=== PATIENT | female | born 1970 | race Two or more races ===

== ENCOUNTER 2021-11-29 09:43 | Outpatient (REF) | payer OTHER, SELFPAY ==
[2021-11-29 10:01] LABS: Hematocrit 37.7 % (37.0-47.0); Hemoglobin 12.1 g/dl (12.0-16.0); Mean Corpuscular HGB Conc 32.1 g/dl (31.0-35.0); Mean Corpuscular Hemoglobin 29.8 pg (27.0-33.0); Mean Corpuscular Volume 92.9 fL (80.0-98.0); Mean Platelet Volume 9.4 fL (9.4-12.3); Platelet Count 412 X10*3/uL (160-400); Red Blood Count 4.06 X10*6/uL (4.20-5.50); Red Cell Distribution Width 13.2 % (11.0-16.0); White Blood Count 5.9 X10*3/uL (4.8-10.8)
[2021-11-29 10:15] LABS: Estimated Average Glucose 103 mg/dL; Hemoglobin A1c % 5.2 %
[2021-11-29 10:22] LABS: Alanine Aminotransferase 10 U/L (0-31); Alkaline Phosphatase 150 U/L (39-117); Anion Gap 11 (12-20); Aspartate Amino Transferase 15 U/L (5-31); Bilirubin Total < 0.2 mg/dL (0.0-1.0); Blood Urea Nitrogen 7 mg/dL (9-16); Calcium 9.5 mg/dL (8.4-10.2); Carbon Dioxide 28 mmol/L (22-29); Chloride 105 mmol/L (96-108); Cholesterol 236 mg/dL; Estimated Glomerular Filt Rate > 60; Glucose Fasting 97 mg/dL (60-99); HDL Cholesterol 46 mg/dL; LDL Cholesterol Calculated 167 mg/dl; Potassium 3.8 mmol/L (3.3-5.1); Rheumatoid Factor < 15.0 IU/mL (<15.0); Sodium 140 mmol/L (135-145); Triglycerides 118 mg/dL
[2021-11-29 10:41] LABS: TSH reflex Free T4 1.84 uIU/mL (0.32-4.0)
[2021-11-29 14:26] LABS: Erythrocyte Sedimentation Rate 71 MM/HR (0-20)
[2021-11-30 09:06] LABS: Herpes Simplex Type 2 IgG 9.57 index
[2021-12-01 12:41] LABS: Anti Nuclear Antibody Screen NEGATIVE (NEGATIVE)
[2021-12-02 15:36] LABS: Cyclic Citrullinated Peptide <16 UNITS
== END 2021-11-29 09:44 | disposition home or self-care (01) ==
LOC: HO.LAB 09:43
PROVIDERS: PCP Physician Assistant; Visit Provider Physician Assistant
DX: Z13.29 Encounter for screening for other suspected endocrine disorder (principal); Z13.220 Encounter for screening for lipoid disorders; B00.9 Herpesviral infection, unspecified; M79.7 Fibromyalgia; I10 Essential (primary) hypertension
CPT/HCPCS: 36415; 80053; 80061; 83036; 84443; 85027; 85652; 86038; 86039; 86200; 86431; 86695; 86696

== ENCOUNTER 2022-01-09 09:36 | Outpatient (REF) | payer OTHER, SELFPAY ==
[2022-01-14 21:47] LABS: HPV mRNA E6/E7 rflx Not Detected (Not Detected)
== END 2022-01-09 09:37 | disposition home or self-care (01) ==
LOC: HO.LAB 09:36
PROVIDERS: PCP Physician Assistant; Visit Provider Advanced Practice Midwife
DX: Z01.419 Encounter for gynecological examination (general) (routine) without abnormal findings (principal); Z11.51 Encounter for screening for human papillomavirus (HPV)
CPT/HCPCS: 87624; 88142

== ENCOUNTER 2022-01-28 13:45 | Outpatient (REF) | payer OTHER, SELFPAY ==
--- NOTE | ~2022-01-28 | MM_ITS ---
EXAMINATION: MM SCREENING DIGITAL BREAST TOMOSYNTHESIS, BILATERAL CLINICAL INFORMATION: Screening. Asymptomatic. The lifetime risk of breast cancer based on the Tyrer-Cuzick Model is 5%. COMPARISON: Mammography: 08/05/2018, 12/11/2017, 03/19/2017 TECHNIQUE: Digital breast tomosynthesis is performed in both the craniocaudal and mediolateral oblique views along with computer-aided detection (CAD). Synthesized 2D images are generated from the tomosynthesis. Additional right CC view is provided. FINDINGS: There are scattered areas of fibroglandular density (ACR BI-RADS breast composition Category b). There are no significant masses, abnormal calcifications, or other abnormalities. Breast tissue composition borders on heterogeneously dense. Low right axillary tail nodes are stable. Parenchymal pattern is similar to prior studies. There are no significant changes. MM/MM tomosynthesis screening BI IMPRESSION: No mammographic evidence of malignancy. ASSESSMENT: BI-RADS 2: Benign RECOMMENDATION: Routine annual mammography screening. This patient's information was entered into a reminder system with a target due date for their next mammogram.
== END 2022-01-28 13:46 | disposition home or self-care (01) ==
LOC: HO.MAMMO 13:45
PROVIDERS: Visit Provider Physician Assistant
DX: Z12.31 Encounter for screening mammogram for malignant neoplasm of breast (principal)
CPT/HCPCS: 77063; 77067

== ENCOUNTER 2022-02-20 13:59 | Outpatient (REF) | payer OTHER, SELFPAY ==
--- NOTE | ~2022-02-20 | XR_ITS ---
EXAMINATION: XR KNEE, RIGHT CLINICAL INFORMATION: Osteoarthritis. COMPARISON: Right knee radiographs dated 12/09/2015. TECHNIQUE: Four views of the right knee. FINDINGS: Mild lateral compartment joint space narrowing with lateral tibial plateau subchondral sclerosis and subchondral cystic change. Small tricompartmental marginal osteophytes. No acute fracture or dislocation. Moderate joint effusion. No abnormal soft tissue calcification. XR/XR knee RT 3V IMPRESSION: Moderate lateral as well as mild medial and patellofemoral compartment osteoarthritis, progressed when compared to the prior radiographs. Moderate joint effusion.
--- NOTE | ~2022-02-20 | XR_ITS ---
EXAMINATION: XR CERVICAL SPINE CLINICAL INFORMATION: Cervical disc disorder. COMPARISON: Cervical spine CT dated 02/13/2018. TECHNIQUE: AP, lateral, open-mouth, foraminal, and bilateral oblique views of the cervical spine were obtained. FINDINGS: Normal vertebral body alignment. The cervical lordosis is maintained. No acute fracture or subluxation. No loss of vertebral body height. Loss of intervertebral disc height with endplate sclerosis and endplate osteophytes at C5-C6, similar when compared to the prior CT. Minimal bilateral neural foraminal stenosis at this level. No concerning lytic or blastic osseous lesion. Normal vertebral body alignment. Unremarkable prevertebral soft tissues. XR/XR cervical spine 4V IMPRESSION: Moderate degenerative disc disease with minimal bilateral neural foraminal stenosis at C5-C6, which appears similar when compared to the prior CT.
== END 2022-02-20 14:00 | disposition home or self-care (01) ==
LOC: HO.XRAY 13:59
PROVIDERS: PCP Physician Assistant; Visit Provider Physician Assistant
DX: M50.90 Cervical disc disorder, unspecified, unspecified cervical region (principal); M17.11 Unilateral primary osteoarthritis, right knee
CPT/HCPCS: 72050; 73562

== ENCOUNTER → 2022-09-15 14:06 | Outpatient (BNVA) | payer OTHER, SELFPAY | PROVIDERS: PCP Physician Assistant; Visit Provider Nurse Practitioner Family | DX: M50.90 Cervical disc disorder, unspecified, unspecified cervical region (principal); M79.7 Fibromyalgia; M54.12 Radiculopathy, cervical region | CPT/HCPCS: 99202 ==

== ENCOUNTER 2022-11-27 10:24 | Outpatient (REF) | payer OTHER, SELFPAY ==
[2022-11-27 12:25] LABS: Alanine Aminotransferase 12 U/L (0-31); Alkaline Phosphatase 178 U/L (39-117); Anion Gap 13 (12-20); Aspartate Amino Transferase 17 U/L (5-31); Bilirubin Total 0.3 mg/dL (0.0-1.0); Blood Urea Nitrogen 15 mg/dL (9-16); Calcium 9.5 mg/dL (8.4-10.2); Carbon Dioxide 28 mmol/L (22-29); Chloride 102 mmol/L (96-108); Cholesterol 243 mg/dL; Estimated Glomerular Filt Rate > 60; Glucose Fasting 87 mg/dL (60-99); HDL Cholesterol 53 mg/dL; LDL Cholesterol Calculated 171 mg/dl; Sodium 139 mmol/L (135-145); Triglycerides 95 mg/dL
[2022-11-27 12:29] LABS: Erythrocyte Sedimentation Rate 82 MM/HR (0-20)
[2022-11-27 13:19] LABS: Rheumatoid Factor < 13.0 IU/mL (<15.0)
[2022-11-28 17:17] LABS: Calcium (PTHI) 9.4 mg/dL (8.6-10.4); PTHI 63 pg/mL (16-77)
[2022-12-01 08:09] LABS: Anti Nuclear Antibody Screen NEGATIVE (NEGATIVE)
[2022-12-01 14:19] LABS: Cyclic Citrullinated Peptide <16 UNITS
== END 2022-11-27 10:25 | disposition home or self-care (01) ==
LOC: HO.LAB 10:24
PROVIDERS: PCP Physician Assistant; Visit Provider Physician Assistant
DX: M17.11 Unilateral primary osteoarthritis, right knee (principal); E78.9 Disorder of lipoprotein metabolism, unspecified
CPT/HCPCS: 36415; 80053; 80061; 83970; 85652; 86038; 86039; 86200; 86431

== ENCOUNTER 2023-03-16 12:58 | Outpatient (REF) | payer OTHER, SELFPAY ==
--- NOTE | ~2023-03-16 | MM_ITS ---
EXAMINATION: MM SCREENING DIGITAL BREAST TOMOSYNTHESIS, BILATERAL CLINICAL INFORMATION: Screening. Asymptomatic. The lifetime risk of breast cancer based on the Tyrer-Cuzick Model is 6.2%. COMPARISON: Mammography: January 28, 2022 and studies dating back to February 20, 2014 TECHNIQUE: Digital breast tomosynthesis is performed in both the craniocaudal and mediolateral oblique views along with computer-aided detection (CAD). Synthesized 2D images are generated from the tomosynthesis. FINDINGS: There are scattered areas of fibroglandular density (ACR BI-RADS breast composition Category b). There are no significant masses, abnormal calcifications, or other abnormalities. MM/MM tomosynthesis screening BI IMPRESSION: No significant changes from prior exam. ASSESSMENT: BI-RADS 1: Negative RECOMMENDATION: Routine annual mammography screening. This patient's information was entered into a reminder system with a target due date for their next mammogram.
== END 2023-03-16 12:59 | disposition home or self-care (01) ==
LOC: HO.MAMMO 12:58
PROVIDERS: PCP Physician Assistant; Visit Provider Physician Assistant
DX: Z12.31 Encounter for screening mammogram for malignant neoplasm of breast (principal)
CPT/HCPCS: 77063; 77067

== ENCOUNTER 2023-07-08 12:59 | Outpatient (AMB) | payer OTHER, SELFPAY ==
--- NOTE | 2023-07-08 13:01 | MHC.OFFVIS ---
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 Scribed for DIMAS Feng by Marjorie Fisher medical grade shoemaker, on 07/08/2023 at 1:20 pm EST. Electronic Train Control Technician Required: No Information Interpreted: non-clinical & clinical Director Labor Standards: Director Labor Standards Present ([place]) Allergies acetaminophen [Percocet] Allergy (Unknown, Verified 07/08/23 13:05) Unknown diazepam Allergy (Unknown, Verified 07/08/23 13:05) anxiety oxycodone Allergy (Unknown, Verified 07/08/23 13:05) unknown suvorexant [Belsomra] Allergy (Unknown, Verified 07/08/23 13:05) inadequate response trazodone Allergy (Unknown, Verified 07/08/23 13:05) unknown tramadol Adverse Reaction (Unknown, Verified 07/08/23 13:05) abdominal pain Is last menstrual period known: Yes Last menstrual period: 06/23/23 (pt had brown discharge for 5 days 06/23- 06/27) Post menopausal: Yes Patient : No HPI HPI Comments History of Present Illness Details She is a postmenopausal woman presenting for annual exam. Reports VB was in May for 5 days and did not have menses almost 2 years prior. Denies any recent injections of prednisone or cortisone. Reports urinary incontinence when sleeping and used to wear adult diapers. Patient admits she tries to eat a healthy diet including Calcium and Vitamin D. She stays active with exercise. Currently not sexually active due to partner being incarcerated. Denies vaginal itching and irritation. Last pap smear 01/09/22. Last mammogram 03/16/23. PFSH Medical History Cervical disc disease Chronic knee pain Fibromyalgia YAMILETH (generalized anxiety disorder) Knee osteoarthritis PMB (postmenopausal bleeding) PTSD (post-traumatic stress disorder) Urinary incontinence in female Surgical History History of knee surgery History of tubal ligation Family History Mother Dementia Arthritis Mental health disorder Father Arthritis Heart disease Skin cancer Social History Housing: Apartment Alcohol intake: never Patient Tobacco Use Status: Former Tobacco user Tobacco use type: Cigarette Cigarettes Per Day: 0 e-Cigarette/Vaping Use: Never Used Substance Use Type: Marijuana service: No Current occupational status: disabled Cognitive needs: No Hearing needs: No Vision needs: No Female Reproductive History Menstrual Age of Menarche: 11 Duration of menses: 3-5 days Date of last menstrual period: 06/23/23 (pt had brown discharge for 5 days 06/23- 06/27) control method: permanent sterilization Permanent Sterilization: BTL Total pregnancies: 4 Full term: 3 Number of Living Children: 3 Date of last pap smear: 01/09/22 (neg pap and hpv) History of abnormal pap smear: Yes (04/02 ascus) Date of Mammogram: 03/16/23 (Birad 1) Physical Exam Vital Signs: Last Vital Signs BP 118/68 07/08/23 13:02 BMI result Body Mass Index 25.4 Const General: cooperative, healthy appearing, no acute distress, well developed and alert Orientation/consciousness: patient oriented x3 HEENT Head: Yes normal to inspection Eyes General: appearance normal, both eyes and all related structures Neck Neck: Yes normal visual inspection Thyroid: Thyroid normal Chest Chest palpation & inspection: normal inspection of the chest Breast/axilla inspection: normal inspection of the breasts (no puckering, dimpling, peau de orange, retraction, discharge, masses) Breast/axilla palpation: normal palpation of the breasts Resp Effort & Inspection: normal respiratory effort GI Inspection: Yes normal to inspection Palpation (GI): Soft to palpation (to palpation) Rectal Exam - Female: deferred General: Yes bladder normal to inspection External Female Exam: normal external appearance and normal appearance of the urethra Speculum Exam - Vagina: normal appearance of the vagina, normal palpation and vagina atrophic Speculum Exam - Cervix: normal appearance of the cervix and normal palpation Bimanual exam- vagina & uterus: normal palpation and normal palpation Bimanual Exam- Adnexa, other: normal adnexae and no masses Skin General skin exam: no rashes or lesions noted Neuro General: patient oriented x3 Cognition (Neuro): normal cognition Extrem General: Yes normal to inspection Psych Attitude: cooperative Thought process: Normal thought process present Assessment & Plan Assessment & Plan (1) Encounter for annual routine gynecological examination: Code(s): Z01.419 - Encounter for gynecological examination (general) (routine) without abnormal findings Plan: Discussed: Current recommendations for pap smears per ASCCP guidelines. Breast awareness and periodic self breast exams. Encouraged yearly mammograms. Maintaining a healthy lifestyle including a well balanced diet including Calcium and Vitamin D and routine exercise. All of her questions and concerns were addressed to the best of my ability RTO in 1 year for AG. (2) PMB (postmenopausal bleeding): Code(s): N95.0 - Postmenopausal bleeding Plan: Discussed work up including pelvic US and possible EMB if US results are abnormal. The EMB purpose was explained to rule out atypia, hyperplasia and uterine cancer. Reviewed procedure and instructed to take ibuprofen with food 1 hour prior to procedure. Go to ER with any prolonged or heavy bleeding. All of her questions and concerns were addressed to the best of my ability and shared decision making: for US and possible EMB. She is agreeable to plan of care. Return in 2 weeks for test results and EMB. (3) Urinary incontinence in female: Code(s): R32 - Unspecified urinary incontinence Plan: Advised to wear a adult diaper at night when sleeping and a menstrual pad throughout the day. Orders: Orders US pelvic and transvaginal Today N95.0 - Postmenopausal bleeding Coding Level of Care Code Est Pt Prev Care 40-64y(34594) Diagnoses Encounter for annual routine gynecological examination Z01.419 PMB (postmenopausal bleeding) N95.0 Urinary incontinence in female R32
[2023-07-08 13:02] VITALS: BP 118/68; BMI 25.4
== END 2023-07-08 13:39 | disposition home or self-care (01) ==
LOC: HO.HWS 12:59
PROVIDERS: PCP Physician Assistant; Visit Provider Advanced Practice Midwife
DX: Z01.419 Encounter for gynecological examination (general) (routine) without abnormal findings (principal); N95.0 Postmenopausal bleeding; R32 Unspecified urinary incontinence
CPT/HCPCS: 99396

== ENCOUNTER → 2023-07-08 12:59 | Outpatient (BNVA) | payer OTHER, SELFPAY | PROVIDERS: PCP Physician Assistant; Visit Provider Advanced Practice Midwife ==

== ENCOUNTER 2023-07-14 15:00 | Outpatient (REF) | payer OTHER, SELFPAY ==
--- NOTE | ~2023-07-14 | US_ITS ---
EXAMINATION: US PELVIS CLINICAL INFORMATION: Postmenopausal bleeding. COMPARISON: None available. TECHNIQUE: Ultrasound of the pelvis is performed using both transabdominal and transvaginal transducers along with Doppler. Transvaginal imaging is performed due to inadequate visualization transabdominally. FINDINGS: Uterus: The uterus is anteverted and measures 6.8 x 4.7 x 5.4 cm. Nabothian cysts in the cervix per The double wall endometrial thickness is 2 mm. The uterus is smooth in contour and has normal myometrial echogenicity. No visible fibroid. Adnexa: Both ovaries are visualized. There is normal color flow to the adnexa. There is no ovarian torsion. There is no pelvic ascites or fluid collection. Right ovary measures 2.2 x 1.5 x 1.2 cm. Volume 2.1 mL. Left ovary measures 2.5 x 0.8 x 1 point cm. Volume 1.8 mL. US/US pelvic and transvaginal IMPRESSION: Unremarkable pelvic ultrasound.
== END 2023-07-14 15:01 | disposition home or self-care (01) ==
LOC: HO.US 15:00
PROVIDERS: PCP Physician Assistant; Visit Provider Advanced Practice Midwife
DX: N95.0 Postmenopausal bleeding (principal)
CPT/HCPCS: 76830; 76856

== ENCOUNTER 2023-08-20 12:36 | Outpatient (AMB) | payer OTHER, SELFPAY ==
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
[2023-08-20 13:03] VITALS: BP 143/81; PULSE 80; O2SAT 97; BMI 25.3
== END 2023-08-20 13:14 | disposition home or self-care (01) ==
PROVIDERS: PCP Physician Assistant; Visit Provider Nurse Practitioner Family
DX: M54.2 Cervicalgia (principal); M79.7 Fibromyalgia; M47.812 Spondylosis without myelopathy or radiculopathy, cervical region
CPT/HCPCS: 99213

== ENCOUNTER → 2023-08-20 12:36 | Outpatient (BNVA) | payer OTHER, SELFPAY | PROVIDERS: PCP Physician Assistant; Visit Provider Nurse Practitioner Family | DX: M54.2 Cervicalgia (principal); M50.90 Cervical disc disorder, unspecified, unspecified cervical region; M79.7 Fibromyalgia; M47.812 Spondylosis without myelopathy or radiculopathy, cervical region | CPT/HCPCS: 99212 ==

== ENCOUNTER 2023-09-18 10:18 | Outpatient (AMB) | payer OTHER, SELFPAY ==
[2023-09-18 10:34] VITALS: BP 130/80; BMI 25.0
--- NOTE | 2023-09-18 10:34 | MHC.OFFVIS ---
Intake Vital Signs 09/18/23 10:34 Height 5 ft 2 in Weight 136 lb 10.986 oz BMI 25.0 BP 130/80 Intake Visit Reasons: EMB/US results Intake Note: The patient agreed to use of a medical health researcher during this encounter. Scribed for DIMAS Feng by Zaida Vilchis medical health researcher, on 09/17/2023 at 10:45 am EST Waterworks Pump Station Operator Required: No Information Interpreted: non-clinical & clinical Accompanied by: Self / Same As Patient Allergies acetaminophen [Percocet] Allergy (Unknown, Verified 09/18/23 10:35) Unknown diazepam Allergy (Unknown, Verified 09/18/23 10:35) anxiety oxycodone Allergy (Unknown, Verified 09/18/23 10:35) unknown suvorexant [Belsomra] Allergy (Unknown, Verified 09/18/23 10:35) inadequate response trazodone Allergy (Unknown, Verified 09/18/23 10:35) unknown tramadol Adverse Reaction (Unknown, Verified 09/18/23 10:35) abdominal pain HPI HPI Comments History of Present Illness Details The patient is here to discuss test results secondary to PMB. On last visit, she reported VB for 5 days in May after not having a menses for 2 years. Denies any steroid injections around that time. [facility] Medical History Urinary incontinence in female PMB (postmenopausal bleeding) Cervical disc disease Knee osteoarthritis Fibromyalgia PTSD (post-traumatic stress disorder) YAMILETH (generalized anxiety disorder) Chronic knee pain Surgical History History of tubal ligation History of knee surgery Family History Mother Dementia Arthritis Mental health disorder Father Arthritis Heart disease Skin cancer Social History Housing: Apartment Alcohol intake: never Patient Tobacco Use Status: Former Tobacco user Tobacco use type: Cigarette Cigarettes Per Day: 0 e-Cigarette/Vaping Use: Never Used Substance Use Type: Marijuana service: No Current occupational status: disabled Cognitive needs: No Hearing needs: No Vision needs: No Female Reproductive History Menstrual Age of Menarche: 11 Review of Systems Const All systems reviewed & are unremarkable except as noted in HPI and below Physical Exam Vital Signs: Last Vital Signs BP 130/80 09/18/23 10:34 BMI result Body Mass Index 25.0 Const General: cooperative, healthy appearing, no acute distress, well developed and alert Results Reviewed Results Reviewed: 07/14/23 US FINDINGS: Uterus: The uterus is anteverted and measures 6.8 x 4.7 x 5.4 cm. Nabothian cysts in the cervix per The double wall endometrial thickness is 2 mm. The uterus is smooth in contour and has normal myometrial echogenicity. No visible fibroid. Adnexa: Both ovaries are visualized. There is normal color flow to the adnexa. There is no ovarian torsion. There is no pelvic ascites or fluid collection. Right ovary measures 2.2 x 1.5 x 1.2 cm. Volume 2.1 mL. Left ovary measures 2.5 x 0.8 x 1 point cm. Volume 1.8 mL. IMPRESSION: Unremarkable pelvic ultrasound. Assessment & Plan Assessment & Plan (1) PMB (postmenopausal bleeding): Code(s): N95.0 - Postmenopausal bleeding Plan: Reveiwed test results with patient. Encouraged further testing including EMBx. Offered EMBx today, she opts to come back next week to have procedure done as she was not prepared today. The EMBx purpose was explained to rule out atypia, hyperplasia and uterine cancer. Reviewed procedure and instructed to take ibuprofen with food 1 hour prior to procedure. All of her questions and concerns were addressed to the best of my ability and shared decision making: for EMBx. She is agreeable to plan of care. RTO for EMBx. (2) Encounter to discuss test results: Code(s): Z71.2 - Person consulting for explanation of examination or test findings Coding Level of Care Code Est Pt Level 2 (65402) Diagnoses PMB (postmenopausal bleeding) N95.0 Encounter to discuss test results Z71.2
== END 2023-09-18 10:51 | disposition home or self-care (01) ==
LOC: HO.HWS 10:18
PROVIDERS: PCP Physician Assistant; Visit Provider Advanced Practice Midwife
DX: N95.0 Postmenopausal bleeding (principal); Z71.2 Person consulting for explanation of examination or test findings
CPT/HCPCS: 99212

== ENCOUNTER → 2023-09-18 10:18 | Outpatient (BNVA) | payer OTHER, SELFPAY | PROVIDERS: PCP Physician Assistant; Visit Provider Advanced Practice Midwife | DX: Z71.2 Person consulting for explanation of examination or test findings (principal); N95.0 Postmenopausal bleeding | CPT/HCPCS: 99212 ==

== ENCOUNTER 2023-09-25 10:14 | Outpatient (AMB) | payer OTHER, SELFPAY ==
--- NOTE | 2023-09-25 10:19 | A.OFFVIS_ITS ---
Intake Vital Signs 09/25/23 10:26 Height 5 ft 2 in Weight 136 lb 10.986 oz BMI 25.0 BP 110/66 Intake Visit Reasons: EMB/30 mins/per BMaloney Intake Note: The patient agreed to use of a medical delivery driver during this encounter. Scribed for DIMAS Feng by Zaida Vilchis medical delivery driver, on 09/25/2023 at 10:55 am EST Recorder Helper [employer] Required: No Information Interpreted: non-clinical & clinical Box Covering Machine Operator: Box Covering Machine Operator Present (Deborah LAMAR) Accompanied by: Self / Same As Patient Allergies acetaminophen [Percocet] Allergy (Unknown, Verified 09/25/23 10:) Unknown diazepam Allergy (Unknown, Verified 09/25/23 10:) anxiety oxycodone Allergy (Unknown, Verified 09/25/23 10:) unknown suvorexant [Belsomra] Allergy (Unknown, Verified 09/25/23 10:) inadequate response trazodone Allergy (Unknown, Verified 09/25/23 10:) unknown tramadol Adverse Reaction (Unknown, Verified 09/25/23 10:) abdominal pain Post menopausal: Yes HPI HPI Comments History of Present Illness Details The patient is here today for an endometrial biopsy for PMB to rule out any pathology including atypical, hyperplasia or cancer cells of the uterus. She was consented for the procedure, and the consent forms were signed. She is agreeable to have the procedure today. All questions were answered. Hx of anxiety and PTSD, had a little panic attack while in the exam room today. PFSH Medical History Urinary incontinence in female PMB (postmenopausal bleeding) Cervical disc disease Knee osteoarthritis Fibromyalgia PTSD (post-traumatic stress disorder) YAMILETH (generalized anxiety disorder) Chronic knee pain Surgical History History of tubal ligation History of knee surgery Family History Mother Dementia Arthritis Mental health disorder Father Arthritis Heart disease Skin cancer Social History Housing: Apartment Alcohol intake: never Patient Tobacco Use Status: Former Tobacco user Tobacco use type: Cigarette Cigarettes Per Day: 0 e-Cigarette/Vaping Use: Never Used Substance Use Type: Marijuana service: No Current occupational status: disabled Cognitive needs: No Hearing needs: No Vision needs: No Female Reproductive History Menstrual Age of Menarche: 11 Review of Systems Const All systems reviewed & are unremarkable except as noted in HPI and below Physical Exam Vital Signs: Last Vital Signs BP 110/66 09/25/23 10:26 BMI result Body Mass Index 25.0 Const General: cooperative, no acute distress, well developed and alert External Female Exam: normal external appearance Speculum Exam - Vagina: normal appearance of the vagina and vagina atrophic Speculum Exam - Cervix: normal appearance of the cervix (atrophic) Bimanual exam- vagina & uterus: normal bimanual exam, uterine size normal, uterine shape normal and non-tender Bimanual Exam- Adnexa, other: normal adnexae and no masses Office Procedures Endometrial Biopsy Details: She was counseled regarding anticipatory guidance for the procedure including the risks for pain, infection, bleeding, perforation, potential injury to the tissues may include the cervix, uterus, tubes, bladder and bowels. These injuries may include further treatment and evaluation including surgery, blood transfusions, antibiotics, hospitalizations and anesthesia. Permanent injury and scarring can occur. The patient was placed in the dorsal lithotomy position and a sterile speculum inserted. Using aseptic technique for the procedure. The cervix was cleansed with Betadine x 3 swabs. A single toothed tenaculum was placed on the cervix for stabilization, the internal cervical os was closed, a graduated dialator was passed x 1 gently and the os released easily, and the uterus was sounded to 8 cm with a 4mm pipelle for 4 passes to obtain an adequate sample size. Minimal bleeding was observed right cervix at 10 o'clock, was able to stop with direct pressure. The patient tolerated the procedure well and was in good condition when leaving the department. The tissue sample was placed in formalin in a patient labeled container by staff assisting and sent to the pathology department for processing and interpretation. The patient tolerated the procedure well. Warnings reviewed with patient. Instructions given to call if temp >100.4, flu like sx, SOB, fatigue, lightheadedness/dizziness, abd pain (worse than cramping), bloating or abd distention, foul odor or abnormal discharge or heavy vaginal bleeding. [id number] Biopsy Assessment & Plan Assessment & Plan (1) PMB (postmenopausal bleeding): Code(s): N95.0 - Postmenopausal bleeding Plan: EMBx done today, see procedure note. Instructed patient nothing in the vagina including: tampons, douching or sex for 3 days. She may take an over the counter mild analgesic such as Tylenol or Advil (if no allergies) per the healthcare specialist?s recommendation on dosing, frequency, and follow the directions completely. RTO for test results. Orders: Orders Surgical Today N95.0 - Postmenopausal bleeding Coding Level of Care Code Procedure Only Diagnoses PMB (postmenopausal bleeding) N95.0 CPT Codes Endometrial Biopsy - CPT: 21282-[id number] Biopsy ([id number])
[2023-09-25 10:26] VITALS: BP 110/66; BMI 25.0
== END 2023-09-25 11:18 | disposition home or self-care (01) ==
LOC: HO.HWS 10:14
PROVIDERS: PCP Physician Assistant; Visit Provider Advanced Practice Midwife
DX: N95.0 Postmenopausal bleeding (principal)
CPT/HCPCS: 58100

== ENCOUNTER 2023-09-25 10:14 | Outpatient (REF) | payer OTHER, SELFPAY | END 2023-09-25 10:15 | disposition home or self-care (01) | LOC: HO.LNP 10:14 | PROVIDERS: PCP Physician Assistant; Visit Provider Advanced Practice Midwife | DX: N95.0 Postmenopausal bleeding (principal) | CPT/HCPCS: 58100; 88305 ==

== ENCOUNTER 2023-10-07 13:17 | Outpatient (AMB) | payer OTHER, SELFPAY ==
[2023-10-07 13:28] VITALS: BP 110/72; BMI 25.3
--- NOTE | 2023-10-07 13:28 | A.OFFPC_ITS ---
Vital Signs 10/07/23 13:28 Height 5 ft 2 in Weight 138 lb 8 oz BMI 25.3 BP 110/72 Blood Pressure Location Lt brachial Position Sitting Intake Visit Reasons: Physical Exam Intake Note: Pt here for Annual physical. Police [employer] Required: No Accompanied by: Self / Same As Patient Allergies acetaminophen [Percocet] Allergy (Unknown, Verified 10/07/23 14:17) Unknown diazepam Allergy (Unknown, Verified 10/07/23 14:17) anxiety oxycodone Allergy (Unknown, Verified 10/07/23 14:17) unknown suvorexant [Belsomra] Allergy (Unknown, Verified 10/07/23 14:17) inadequate response trazodone Allergy (Unknown, Verified 10/07/23 14:17) unknown lisinopril Adverse Reaction (Intermediate, Verified 10/07/23 14:21) Cough tramadol Adverse Reaction (Unknown, Verified 10/07/23 14:17) abdominal pain Medication List - Last Reconciled 10/07/23 by Mahesh Dillon PA-C albuterol sulfate 90 mcg/actuation 2 puffs inhalation Q4H PRN 30 days alprazolam 1 mg PO BID PRN baclofen 10 mg PO BID PRN 30 days blood pressure test kit-medium As directed cane As directed cholecalciferol (vitamin D3) 50 mcg PO DAILY 90 days citalopram 40 mg PO QAM gabapentin 300 mg PO BEDTIME PRN 30 days hydrochlorothiazide 12.5 mg PO DAILY ibuprofen 800 mg PO BID PRN quetiapine 100 mg PO BID valacyclovir (Valtrex) 1,000 mg PO DAILY 30 days Tobacco use date assessed: 10/07/23 Dental Screening Dental Screen Date: 10/07/23 Did you have a dental visit in the last 12 months?: Yes Did you have a dental problem in the last 6 months where you did not have access to dental care?: No Was dental information given to patient?: Patient has dentist HPI Physical Exam HPI Details Patient is a 52-year-old female here today a routine annual physical.? Patient has a past medical history significant for fibromyalgia, osteoarthritis of the right knee, cervical discs disease, borderline high cholesterol, major depressive disorder anxiety. Concerns--> she reports she has been experiencing are urinary incontinence and has recently seen her respiratory care program director and gotten endometrial biopsy. Incontinence has been issue for her for quite some time. Has tried on a spastic bladder medication though had side effects. PLAN: She will likely benefit from pelvic floor therapy. .. Major depressive disorder:? Continues to follow a psychiatrist and mental health therapist who manages her mental health medications.? She continues to suffer from a depressive disorder and mostly stays in her home.? She relays that she is unable to work and concentrate on work tasks due to her depression and anxiety ? .. . Borderline high cholesterol:? Most recent lipid panel showing borderline high total cholesterol.? She working on lifestyle to reduce high cholesterol foods in her diet.? Will recheck lipid panel fasting before next visit. .. Right Knee arthroplasty. . She underwent a total right knee arthroplasty and continues to have slow recovery. She continues to walk with a cane for assistance. She does report continued pain and stiffness in her knee. Mammogram: Done in February 2023 BI-RADS 1 Colon cancer screening: Need for colon cancer screening PRESERVATIVE FILLER MACHINE OPERATOR: followed by PRESERVATIVE FILLER MACHINE OPERATOR - Had a recent EM bx . Vaccines: Up-to-date with pneumonia vaccine and shingles vaccine. Considering flu vaccine and COVID vaccines [facility] Medical History Urinary incontinence in female PMB (postmenopausal bleeding) Cervical disc disease Knee osteoarthritis Fibromyalgia PTSD (post-traumatic stress disorder) YAMILETH (generalized anxiety disorder) Chronic knee pain Surgical History History of tubal ligation History of knee surgery Family History Mother Dementia Arthritis Mental health disorder Father Arthritis Heart disease Skin cancer Social History Housing: Apartment Alcohol intake: never Patient Tobacco Use Status: Former Tobacco user Tobacco use type: Cigarette Cigarettes Per Day: 0 e-Cigarette/Vaping Use: Never Used Substance Use Type: Marijuana service: No Current occupational status: disabled Cognitive needs: No Hearing needs: No Vision needs: No Female Reproductive History Menstrual Age of Menarche: 11 Questionnaire PHQ-9 Over the last 2 weeks, how often have you been bothered by any of the following problems? 1. Little interest or pleasure in doing things: nearly every day 2. Feeling down, depressed, or hopeless: more than half the days 3. Trouble falling or staying asleep, or sleeping too much: nearly every day 4. Feeling tired or having little energy: nearly every day 5. Poor appetite or overeating: nearly every day 6. Feeling bad about yourself - or that you are a failure or have let yourself or your family down: more than half the days 7. Trouble concentrating on things, such as reading the newspaper or watching television: nearly every day 8. Moving or speaking so slowly that other people could have noticed. Or the opposite - being so fidgety or restless that you have been moving around a lot more than usual: not at all 9. Thoughts that you would be better off or of hurting yourself in some way: not at all Total score: 19 Depression Screening Interpretation: Positive Depression Screening Follow-up: Existing condition and In treatment Depression Screening Done: Yes 14747 - PHQ-9 Billing: Yes Source: Developed by Drs. Nadeem Kasper, Dawn Meraz, Demetrius Rosales and colleagues, with an educational prema from [employer]. Thrive Questionnaire Date Thrive assessed: 10/07/23 I am a: Patient What is your living situation today?: I have a steady place to live Within the past 12 months, did the food you bought not last and you didn't have the money to get more?: Never true Within the past 12 months, did you worry whether your food would run out before you got money to buy more?: Never true Do you have trouble paying for medicines?: No Do you have trouble getting transportation to medical appointments?: No Do you have trouble paying your heating and electricity bill?: No Do you have trouble taking care of your child, family member or friend?: No Do you have trouble with day-to-day activities such as bathing, preparing meals, shopping, managing finances, etc.?: No Are you currently unemployed and looking for a job?: No Are you interested in more education?: No Please select the resources that you would like help with: None Currently or been in a relationship where the following occur: no concerns reported AUDIT C Alcohol Use Questionnaire (AUDIT-C) 1. How often do you have a drink containing alcohol?: Never 3. How often do you have six or more drinks on one occasion?: Never Total Score: 0 Score Reviewed/Action Taken: Yes YAMILETH-7 AMB Questionnaire YAMILETH-7 Date YAMILETH - 7 assessed: 10/07/23 Feeling nervous, anxious, or on edge: 3 = Nearly every day Not being able to stop or control worryin = Nearly every day Worrying too much about different things: 3 = Nearly every day Trouble relaxin = Nearly every day Being so restless that it is hard to sit still: 3 = Nearly every day Becoming easily annoyed or irritable: 3 = Nearly every day Feeling afraid as if something awful might happen: 3 = Nearly every day Total YAMILETH-7 score (0-4 normal; 5-9 mild; 10-14 moderate; 15-21 severe): 21 Source: Developed by Drs. Nadeem Kasper, Dawn Meraz, Demetrius Rosales and colleagues, with an educational prema from [employer]. YAMILETH-7 Assessment Billing YAMILETH-7 Assessment Tool: YAMILETH-7 Assessment 15591 Review of Systems Const Denies body aches, Denies chills, Denies excessive sweating, Denies fatigue, Denies fever(s) and Denies headache(s) Eyes Denies blurry vision ENT Denies dysphagia, Denies vertigo, Denies dizziness, Denies headache(s), Denies hearing loss and Denies tinnitus Card Denies chest pain, Denies chest pain with activity, Denies syncope, Denies irregular heart rhythm and Denies dyspnea Resp Denies chest congestion, Denies cough, Denies hemoptysis, Denies dyspnea and Denies wheezing GI Denies abdominal pain, Denies melena, Denies hematochezia, Denies coffee ground emesis, Denies dysphagia, Denies diarrhea, Denies nausea and Denies vomiting Denies urinary frequency, Denies dysuria, Denies urinary hesitancy and Denies urinary urgency Musc Denies arthralgias, Denies limited range of motion, Denies muscle cramps and Denies muscle weakness Skin/Breast Denies rash and Denies skin ulcer Neuro Denies Abnormal speech present, Denies confusion, Denies vertigo, Denies dizziness, Denies syncope, Denies headache(s), Denies memory loss and Denies seizure-like activity Psych Denies anxiety, Denies confusion, Denies depression, Denies memory loss, Denies panic attacks and Denies paranoia Endo Denies excessive sweating, Denies fatigue, Denies flushing, Denies polydipsia and Denies polyuria Aller/Immun Denies wheezing Physical exam (Primary Care) Vital Signs: Last Vital Signs BP 110/72 10/07/23 13:28 BMI result Body Mass Index 25.3 Tobacco/Smoking Status: Tobacco use Status Tobacco use date assessed 10/07/23 10/07/23 13:47 Patient Tobacco Use Status Former Tobacco user 10/07/23 13:29 Tobacco use type Cigarette 10/07/23 13:29 e-Cigarette/Vaping Use Never Used 10/07/23 13:29 PHQ-9: PHQ-9 Score PHQ-9: Total score 19 10/07/23 14:09 Depression Screening Interpretation: Positive Depression Screening Follow-up: Existing condition and In treatment Thrive Assessment: Date of Thrive Assessment Date Thrive assessed 10/07/23 10/07/23 14:04 Currently or been in a relationship where the following occur: no concerns reported Const General: cooperative, comfortable, no acute distress, alert and awake; No confusion Orientation/consciousness: oriented to person, oriented to place, patient oriented x3 and No confusion HENMT Head: Yes normocephalic Ears: external ears normal and TM's normal bilaterally Face and sinus: No sinus tenderness Mouth: Normal oral and palatal mucosa present and tongue normal Teeth and gingiva: dentition normal and gingiva normal Throat: Yes posterior oropharynx normal, Yes tonsils normal and Yes uvula midline Eyes Conjunctivae: conjunctivae normal Sclerae: sclerae normal Pupils: Equal, round and reactive pupils present EOM: EOMs intact bilaterally Direct Ophthalmoscopy: No no photophobia Neck Neck: Yes no lymphadenopathy, No tender and Yes no JVD Thyroid: Thyroid normal Carotids: no bruits Chest Chest palpation & inspection: no tenderness Resp Effort & Inspection: normal respiratory effort, no audible wheezes, not labored and no stridor Auscultation: no crackles, no rales, no rhonchi and no wheezes Cardio Jugular venous distension: no JVD Rate: regular rate, not bradycardic and not tachycardic Rhythm: regular rhythm Bruits: no carotid bruits Peripheral pulses: Peripheral pulses 2+ throughout GI Inspection: Yes normal to inspection, No abdominal wall ecchymosis and No visible herniation Palpation (GI): Soft to palpation, nontender, no guarding, not rigid and No hepatosplenomegaly present Auscultation: normoactive bowel sounds General: Yes no CVA tenderness Back/Spine/Pelvis Back: no CVA tenderness and No back tenderness Cervical Spine: cervical ROM normal Thoracic/Lumbar Spine: thoracic and lumbar spine normal to inspection, straight leg raise negative bilaterally, No thoraco-lumbar ROM limited and No lumbar spinal tenderness Skin Lesions: no lesions Rashes: no rashes Wounds: no wounds Neuro General: oriented to person, oriented to place, patient oriented x3, CN's II-XI intact bilaterally and No confusion Cranial nerves: Yes Equal, round and reactive pupils present and Yes Normal accommodation reflex present Cognition (Neuro): normal cognition Speech: No Abnormal speech present Gait exam (Neuro): Normal gait present Motor exam (neuro): 5/5 motor strength present throughout Extrem Right upper extremity: full ROM; no cyanosis Left upper extremity: full ROM; no cyanosis Right lower extremity: no edema Left lower extremity: no edema Psych Appearance: grossly normal Mental Status: mental status grossly normal Affect: normal affect Attitude: cooperative Thought process: Normal thought process present Assessment and Plan Assessment & Plan (1) Annual physical exam: Code(s): Z00.00 - Encounter for general adult medical examination without abnormal findings (2) HTN (hypertension): Code(s): I10 - Essential (primary) hypertension Qualifiers: Hypertension type: primary hypertension Qualified Code(s): I10 - Essential (primary) hypertension Plan: Patient's blood pressure acceptable today in office. She reports a cough due to lisinopril. Will transition her to losartan. Goal blood pressures to remain below 140/90. (3) YAMILETH (generalized anxiety disorder): Code(s): F41.1 - Generalized anxiety disorder Plan: Patient continues to suffer anxiety which has been existing condition for her. She speaks with a mental health therapist and a psychiatrist who horse stud manager mental health medications. (4) MDD (major depressive disorder), recurrent episode, moderate: Code(s): F33.1 - Major depressive disorder, recurrent, moderate Plan: Patient's PHQ-9 score positive for moderate to severe depression which has been existing condition for her. Again she does speak with a mental health therapist and a psychiatrist whom manage her mental health medication. (5) Colon cancer screening: Code(s): Z12.11 - Encounter for screening for malignant neoplasm of colon Plan: Patient willing to do Cologuard (6) Bilateral flank pain: Code(s): R10.9 - Unspecified abdominal pain Plan: Reports bilateral flank pain thus will get renal ultrasound to evaluate for nephrolithiasis (7) Urinary incontinence in female: Code(s): R32 - Unspecified urinary incontinence Plan: As per HPI patient has been experiencing was seems to be stress incontinence. She would likely benefit from a pelvic floor therapy. Orders: Orders Comprehensive [place]. Panel Fast 10/07/23 I10 - Essential (primary) hypertension Lipid Panel 10/07/23 E78.9 - Disorder of lipoprotein metabolism, unspecified US renal BI 10/07/23 R10.9 - Unspecified abdominal pain PT Evaluation and Treatment 10/07/23 R32 - Unspecified urinary incontinence Microalbumin, Random (w Creat) 10/07/23 I10 - Essential (primary) hypertension Complete Blood Count no Diff 10/07/23 N95.0 - Postmenopausal bleeding Referrals Cologuard Test Z12.11 - Encounter for screening for malignant neoplasm of colon Medications: New losartan 25 mg PO DAILY 90 days 90 tabs 1RF I10 - Essential (primary) hypertension Coding Level of Care Code Est Pt Prev Care 40-64y(20658) Diagnoses Annual physical exam Z00.00 Primary hypertension I10 Hypertension type: primary hypertension YAMILETH (generalized anxiety disorder) F41.1 MDD (major depressive disorder), recurrent episode, moderate F33.1 Colon cancer screening Z12.11 Bilateral flank pain R10.9 Urinary incontinence in female R32 Additional Codes YAMILETH-7 Assessment Billing - YAMILETH-7 Assessment Tool: YAMILETH-7 Assessment [id number] ([id number])
== END 2023-10-07 14:35 | disposition home or self-care (01) ==
PROVIDERS: Visit Provider Physician Assistant
DX: Z00.00 Encounter for general adult medical examination without abnormal findings (principal); I10 Essential (primary) hypertension; F41.1 Generalized anxiety disorder; F33.1 Major depressive disorder, recurrent, moderate; R10.9 Unspecified abdominal pain; R32 Unspecified urinary incontinence
CPT/HCPCS: 96127; 99396

== ENCOUNTER 2023-10-09 14:03 | Outpatient (AMB) | payer OTHER, SELFPAY ==
[2023-10-09 14:19] VITALS: BP 110/68; BMI 25.0
--- NOTE | 2023-10-09 14:19 | A.OFFVIS_ITS ---
Intake Vital Signs 10/09/23 14:19 Height 5 ft 2 in Weight 136 lb 10.986 oz BMI 25.0 BP 110/68 Intake Visit Reasons: EMB Results Intake Note: The patient agreed to use of a medical care administrator during this encounter. Scribed for DIMAS Feng by Zaida Vilchis medical care administrator, on 10/09/2023 at 2:45 pm EST Heel Sorter Required: No Information Interpreted: non-clinical & clinical Accompanied by: Self / Same As Patient Allergies acetaminophen [Percocet] Allergy (Unknown, Verified 10/09/23 14:22) Unknown diazepam Allergy (Unknown, Verified 10/09/23 14:22) anxiety oxycodone Allergy (Unknown, Verified 10/09/23 14:22) unknown suvorexant [Belsomra] Allergy (Unknown, Verified 10/09/23 14:22) inadequate response trazodone Allergy (Unknown, Verified 10/09/23 14:22) unknown lisinopril Adverse Reaction (Intermediate, Verified 10/09/23 14:22) Cough tramadol Adverse Reaction (Unknown, Verified 10/09/23 14:22) abdominal pain Post menopausal: Yes HPI HPI Comments History of Present Illness Details She presents to discuss EMB results secondary to PMB. States she spotted lightly after procedure. Reports urinary incontinence. She saw a urologist in the past, unsure of when. Her PCP referred her to pelvic floor therapy. Also reports abdominal bloating. PFS Medical History Urinary incontinence in female PMB (postmenopausal bleeding) Cervical disc disease Knee osteoarthritis Fibromyalgia PTSD (post-traumatic stress disorder) YAMILETH (generalized anxiety disorder) Chronic knee pain Surgical History History of tubal ligation History of knee surgery Family History Mother Dementia Arthritis Mental health disorder Father Arthritis Heart disease Skin cancer Social History Housing: Apartment Alcohol intake: never Patient Tobacco Use Status: Former Tobacco user Tobacco use type: Cigarette Cigarettes Per Day: 0 e-Cigarette/Vaping Use: Never Used Substance Use Type: Marijuana service: No Current occupational status: disabled Cognitive needs: No Hearing needs: No Vision needs: No Female Reproductive History Menstrual Age of Menarche: 11 Review of Systems Const All systems reviewed & are unremarkable except as noted in HPI and below GI Reports bloating Reports urinary incontinence Physical Exam Vital Signs: Last Vital Signs BP 110/68 10/09/23 14:19 BMI result Body Mass Index 25.0 Const General: cooperative, healthy appearing, no acute distress, well developed and alert Results Reviewed Results Reviewed: Endometrium, biopsy: Benign fragmented atrophic endometrium; no atypia or carcinoma Assessment & Plan Assessment & Plan (1) Encounter to discuss test results: Code(s): Z71.2 - Person consulting for explanation of examination or test findings Plan: Reviewed test results with patient. Contact office with PMB or concerns. RTO as scheduled 07/13/24 for AG. (2) PMB (postmenopausal bleeding): Code(s): N95.0 - Postmenopausal bleeding (3) Urinary incontinence in female: Code(s): R32 - Unspecified urinary incontinence Plan: Follow up with PCP if she does not receive a call from pelvic floor therapy. (4) Abdominal bloating: Code(s): R14.0 - Abdominal distension (gaseous) Plan: Follow up with PCP. Coding Level of Care Code Est Pt Level 3 (62873) Diagnoses Encounter to discuss test results Z71.2 PMB (postmenopausal bleeding) N95.0 Urinary incontinence in female R32 Abdominal bloating R14.0
== END 2023-10-09 15:23 | disposition home or self-care (01) ==
PROVIDERS: PCP Physician Assistant; Visit Provider Advanced Practice Midwife
DX: Z71.2 Person consulting for explanation of examination or test findings (principal); N95.0 Postmenopausal bleeding; R32 Unspecified urinary incontinence; R14.0 Abdominal distension (gaseous)
CPT/HCPCS: 99213

== ENCOUNTER → 2023-10-09 14:03 | Outpatient (BNVA) | payer OTHER, SELFPAY | PROVIDERS: PCP Physician Assistant; Visit Provider Advanced Practice Midwife | DX: Z71.2 Person consulting for explanation of examination or test findings (principal); N95.0 Postmenopausal bleeding; R32 Unspecified urinary incontinence; R14.0 Abdominal distension (gaseous) | CPT/HCPCS: 99212 ==

== ENCOUNTER 2023-12-01 12:05 | Outpatient (REF) | payer OTHER, SELFPAY ==
--- NOTE | ~2023-12-01 | US_ITS ---
EXAMINATION: US RETROPERITONEAL LIMITED (RENAL ONLY) CLINICAL INFORMATION: Unspecified abdominal pain. COMPARISON: None available. TECHNIQUE: Real-time imaging of the kidneys. Limited visualization due to bowel gas. FINDINGS: RIGHT KIDNEY: 10.3 x 4.2 x 5.2 cm (SAG x AP x TRV). No hydronephrosis. No renal calculi. Renal cortical thickness is normal. Limited visualization. LEFT KIDNEY: 8.3 x 4.4 x 4.7 cm (SAG x AP x TRV). No hydronephrosis. No renal calculi. Renal cortical thickness is normal. Limited visualization. US/US renal BI IMPRESSION: No hydronephrosis. No renal calculi. Limited visualization.
== END 2023-12-01 12:06 | disposition home or self-care (01) ==
LOC: HO.US 12:05
PROVIDERS: Visit Provider Physician Assistant
DX: R10.9 Unspecified abdominal pain (principal)
CPT/HCPCS: 76775

== ENCOUNTER 2024-04-14 13:37 | Outpatient (AMB) | payer OTHER, SELFPAY ==
[2024-04-14 13:43] VITALS: BP 112/78; PULSE 92; O2SAT 99; BMI 24.7
--- NOTE | 2024-04-14 13:43 | MHC.PC.OV ---
Vital Signs 04/14/24 13:43 Height 5 ft 2 in Weight 135 lb 2 oz BMI 24.7 BP 112/78 Blood Pressure Location Lt brachial Position Sitting Pulse 92 Pulse Source Pulse Oximeter Pulse Oximetry (%) 99 Oxygen Delivery Method Room Air Intake Visit Reasons: f/u HTN Intake Note: Pt here for Annual physical. Chemical Dependency Professional Required: No Accompanied by: Self / Same As Patient Allergies acetaminophen [Percocet] Allergy (Unknown, Verified 04/14/24 13:52) Unknown diazepam Allergy (Unknown, Verified 04/14/24 13:52) anxiety oxycodone Allergy (Unknown, Verified 04/14/24 13:52) unknown suvorexant [Belsomra] Allergy (Unknown, Verified 04/14/24 13:52) inadequate response trazodone Allergy (Unknown, Verified 04/14/24 13:52) unknown lisinopril Adverse Reaction (Intermediate, Verified 04/14/24 13:52) Cough tramadol Adverse Reaction (Unknown, Verified 04/14/24 13:52) abdominal pain Medication List - Last Reconciled 04/14/24 by Mahesh Dillon PA-C albuterol sulfate 90 mcg/actuation 2 puffs inhalation Q4H PRN 30 days alprazolam 1 mg PO BID PRN baclofen 10 mg PO BID PRN 30 days blood pressure test kit-medium As directed cane As directed cholecalciferol (vitamin D3) 50 mcg PO DAILY 90 days citalopram 40 mg PO QAM gabapentin 300 mg PO BEDTIME PRN 30 days hydrochlorothiazide 12.5 mg PO DAILY ibuprofen 800 mg PO BID PRN losartan 25 mg PO DAILY 90 days quetiapine 100 mg PO BID valacyclovir (Valtrex) 1,000 mg PO DAILY 30 days Tobacco use date assessed: 04/14/24 Dental Screening Dental Screen Date: 04/14/24 Did you have a dental visit in the last 12 months?: Yes Did you have a dental problem in the last 6 months where you did not have access to dental care?: No Was dental information given to patient?: Patient has dentist HPI f/u HTN HPI Details Patient is a 53-year-old female here today a follow-up visit.? Patient has a past medical history significant for fibromyalgia, osteoarthritis of the right knee, cervical discs disease, borderline high cholesterol, major depressive disorder anxiety. Concerns--> she reports she has been experiencing are urinary incontinence and has recently seen her junior sales representative and gotten endometrial biopsy. Incontinence has been issue for her for quite some time. Has tried on a spastic bladder medication though had side effects. PLAN: She will likely benefit from pelvic floor therapy. She also reports having menopausal symptoms she would like to try supplement form. .. Major depressive disorder:? Continues to follow a psychiatrist and mental health therapist who manages her mental health medications.? She continues to suffer from a depressive disorder and mostly stays in her home.? She relays that she is unable to work and concentrate on work tasks due to her depression and anxiety ? .. . Borderline high cholesterol:? Most recent lipid panel showing borderline high total cholesterol.? She working on lifestyle to reduce high cholesterol foods in her diet.? Will recheck lipid panel fasting before next visit. .. Right Knee arthroplasty. . She underwent a total right knee arthroplasty and continues to have slow recovery. She continues to walk with a cane for assistance. She does report continued pain and stiffness in her knee. [facility] Medical History Urinary incontinence in female PMB (postmenopausal bleeding) Cervical disc disease Knee osteoarthritis Fibromyalgia PTSD (post-traumatic stress disorder) YAMILETH (generalized anxiety disorder) Chronic knee pain Surgical History History of tubal ligation History of knee surgery Family History Mother Dementia Arthritis Mental health disorder Father Arthritis Heart disease Skin cancer Social History Housing: Apartment Alcohol intake: never Patient Tobacco Use Status: Former Tobacco user Tobacco use type: Cigarette Cigarettes Per Day: 0 e-Cigarette/Vaping Use: Never Used Substance Use Type: Marijuana service: No Current occupational status: disabled Cognitive needs: No Hearing needs: No Vision needs: No Female Reproductive History Menstrual Age of Menarche: 11 Questionnaire PHQ-9 Over the last 2 weeks, how often have you been bothered by any of the following problems? 1. Little interest or pleasure in doing things: nearly every day 2. Feeling down, depressed, or hopeless: more than half the days 3. Trouble falling or staying asleep, or sleeping too much: nearly every day 4. Feeling tired or having little energy: nearly every day 5. Poor appetite or overeating: nearly every day 6. Feeling bad about yourself - or that you are a failure or have let yourself or your family down: more than half the days 7. Trouble concentrating on things, such as reading the newspaper or watching television: nearly every day 8. Moving or speaking so slowly that other people could have noticed. Or the opposite - being so fidgety or restless that you have been moving around a lot more than usual: not at all 9. Thoughts that you would be better off or of hurting yourself in some way: not at all Total score: 19 Depression Screening Interpretation: Positive Depression Screening Follow-up: Existing condition and In treatment Depression Screening Done: Yes 71330 - PHQ-9 Billing: Yes Source: Developed by Drs. Nadeem Kasper, Dawn Meraz, Demetrius Rosales and colleagues, with an educational prema from [employer]. Thrive Questionnaire Date Thrive assessed: 04/14/24 I am a: Patient What is your living situation today?: I have a steady place to live Within the past 12 months, did the food you bought not last and you didn't have the money to get more?: Never true Within the past 12 months, did you worry whether your food would run out before you got money to buy more?: Never true Do you have trouble paying for medicines?: No Do you have trouble getting transportation to medical appointments?: No Do you have trouble paying your heating and electricity bill?: No Do you have trouble taking care of your child, family member or friend?: No Do you have trouble with day-to-day activities such as bathing, preparing meals, shopping, managing finances, etc.?: No Are you currently unemployed and looking for a job?: No Are you interested in more education?: No Please select the resources that you would like help with: None Currently or been in a relationship where the following occur: no concerns reported THRIVE Score: 0 AUDIT C Alcohol Use Questionnaire (AUDIT-C) 1. How often do you have a drink containing alcohol?: Never 3. How often do you have six or more drinks on one occasion?: Never Total Score: 0 Score Reviewed/Action Taken: Yes YAMILETH-7 AMB Questionnaire YMAILETH-7 Date YAMILETH - 7 assessed: 04/14/24 Feeling nervous, anxious, or on edge: 3 = Nearly every day Not being able to stop or control worryin = Nearly every day Worrying too much about different things: 3 = Nearly every day Trouble relaxin = Nearly every day Being so restless that it is hard to sit still: 3 = Nearly every day Becoming easily annoyed or irritable: 3 = Nearly every day Feeling afraid as if something awful might happen: 3 = Nearly every day Total YAMILETH-7 score (0-4 normal; 5-9 mild; 10-14 moderate; 15-21 severe): 21 Source: Developed by Drs. Nadeem Kasper, Dawn Meraz, Demetrius Rosales and colleagues, with an educational prema from [employer]. YAMILETH-7 Assessment Billing YAMILETH-7 Assessment Tool: YAMILETH-7 Assessment 52281 Physical exam (Primary Care) Vital Signs: Last Vital Signs Pulse 92 04/14/24 13:43 BP 112/78 04/14/24 13:43 Pulse Ox 99 04/14/24 13:43 Oxygen Delivery Method Room Air 04/14/24 13:43 BMI result Body Mass Index 24.7 Tobacco/Smoking Status: Tobacco use Status Tobacco use date assessed 04/14/24 04/14/24 13:49 Patient Tobacco Use Status Former Tobacco user 04/14/24 13:49 Tobacco use type Cigarette 04/14/24 13:49 e-Cigarette/Vaping Use Never Used 04/14/24 13:49 PHQ-9: PHQ-9 Score PHQ-9: Total score 19 04/14/24 13:49 Depression Screening Interpretation: Positive Depression Screening Follow-up: Existing condition and In treatment Thrive Assessment: Date of Thrive Assessment Date Thrive assessed 04/14/24 04/14/24 13:49 Currently or been in a relationship where the following occur: no concerns reported Assessment and Plan Assessment & Plan (1) HTN (hypertension): Code(s): I10 - Essential (primary) hypertension Qualifiers: Hypertension type: primary hypertension Qualified Code(s): I10 - Essential (primary) hypertension Plan: Patient's blood pressure acceptable today in office. She reports a cough due to lisinopril. Will transition her to losartan. Goal blood pressures to remain below 140/90. (2) YAMILETH (generalized anxiety disorder): Code(s): F41.1 - Generalized anxiety disorder Plan: Patient's YAMILETH-7 score positive for anxiety which has been existing condition for her. . She speaks with a mental health therapist and a psychiatrist who mine manager mental health medications. (3) MDD (major depressive disorder), recurrent episode, moderate: Code(s): F33.1 - Major depressive disorder, recurrent, moderate Plan: Patient's PHQ-9 score positive for moderate to severe depression which has been existing condition for her. Again she does speak with a mental health therapist and a psychiatrist whom manage her mental health medication. (4) Urinary incontinence in female: Code(s): R32 - Unspecified urinary incontinence Plan: As per HPI patient has been experiencing was seems to be stress incontinence. She would likely benefit from a pelvic floor therapy. (5) Knee osteoarthritis: Code(s): M17.10 - Unilateral primary osteoarthritis, unspecified knee Qualifiers: Osteoarthritis type: primary Laterality: bilateral Qualified Code(s): M17.0 - Bilateral primary osteoarthritis of knee Plan: Continues to have bilateral knee osteoarthritis. Does have a history right knee total arthroplasty. She is considering physical therapy for balance and lower extremity strengthening again. She continues to walk with a cane and uses a left knee brace. (6) Spastic bladder: Code(s): N32.89 - Other specified disorders of bladder Plan: She reports she continues to have urinary urgency and incontinence. Signs and symptoms are concerning for spastic bladder with urge incontinence. Will supply patient with oxybutynin 5 mg daily and up titrate per response. Again will likely benefit from pelvic floor therapy. (7) Menopausal symptom: Code(s): N95.1 - Menopausal and female climacteric states Plan: Reports having menopausal symptoms such as hot flashes, fatigue in mood swings. Advised her I am black cohosh Medications: New gabapentin 100 mg PO TID 30 days 90 caps 3RF M17.0 - Bilateral primary osteoarthritis of knee oxybutynin chloride ER 5 mg PO DAILY 90 days 90 tabs 1RF N32.89 - Other specified disorders of bladder Changed From valacyclovir (Valtrex) 1,000 mg PO DAILY 30 days 30 tabs 3RF B02.9 - Zoster without complications To valacyclovir (Valtrex) 1,000 mg PO DAILY 14 days 14 tabs 0RF B02.9 - Zoster without complications Refilled cholecalciferol (vitamin D3) 50 mcg PO DAILY 90 days 90 caps 1RF E55.9 - Vitamin D deficiency, unspecified, E78.9 - Disorder of lipoprotein metabolism, unspecified Discontinued gabapentin Discontinued Reason: Doctor's Order 300 mg PO BEDTIME 30 days PRN 30 caps 3RF for pain M54.12 - Radiculopathy, cervical region, M79.7 - Fibromyalgia Patient Instructions: Goal: Blood pressure to remain below 140/90 Barriers: Adherence to physical activity and healthy eating habits Coding Level of Care Code Est Pt Level 4 (95313) Diagnoses Primary hypertension I10 Hypertension type: primary hypertension YAMILETH (generalized anxiety disorder) F41.1 MDD (major depressive disorder), recurrent episode, moderate F33.1 Urinary incontinence in female R32 Primary osteoarthritis of both knees M17.0 Osteoarthritis type: primary Laterality: bilateral Spastic bladder N32.89 Menopausal symptom N95.1 Additional Codes YAMILETH-7 Assessment Billing - YAMILTEH-7 Assessment Tool: YAMILETH-7 Assessment [id number] ([id number])
== END 2024-04-14 14:18 | disposition home or self-care (01) ==
PROVIDERS: PCP Physician Assistant; Visit Provider Physician Assistant
DX: I10 Essential (primary) hypertension (principal); F41.1 Generalized anxiety disorder; F33.1 Major depressive disorder, recurrent, moderate; R32 Unspecified urinary incontinence; M17.0 Bilateral primary osteoarthritis of knee; N32.89 Other specified disorders of bladder; N95.1 Menopausal and female climacteric states
CPT/HCPCS: 99214

== ENCOUNTER 2024-06-17 10:25 | Outpatient (REF) | payer OTHER, SELFPAY ==
[2024-06-17 10:41] LABS: Hematocrit 39.4 % (37.0-47.0); Hemoglobin 12.5 g/dl (12.0-16.0); Mean Corpuscular HGB Conc 31.7 g/dl (31.0-35.0); Mean Corpuscular Hemoglobin 29.6 pg (27.0-33.0); Mean Corpuscular Volume 93.1 fL (80.0-98.0); Mean Platelet Volume 9.7 fL (9.4-12.3); Platelet Count 279 X10*3/uL (160-400); Red Blood Count 4.23 X10*6/uL (4.20-5.50); Red Cell Distribution Width 13.1 % (11.0-16.0); White Blood Count 4.6 X10*3/uL (4.8-10.8)
[2024-06-17 11:10] LABS: Alanine Aminotransferase 14 U/L (0-31); Albumin Level 4.1 g/dL (3.5-5.0); Alkaline Phosphatase 155 U/L (39-117); Anion Gap 14 (12-20); Aspartate Amino Transferase 17 U/L (5-31); Bilirubin Total 0.3 mg/dL (0.0-1.0); Blood Urea Nitrogen 7 mg/dL (9-16); Calcium 9.6 mg/dL (8.4-10.2); Carbon Dioxide 27 mmol/L (22-29); Chloride 103 mmol/L (96-108); Cholesterol 225 mg/dL (<200); Estimated Glomerular Filt Rate > 60; Glucose Fasting 96 mg/dL (60-99); HDL Cholesterol 36 mg/dL (>40); LDL Cholesterol Calculated 166 mg/dL (<100); Sodium 140 mmol/L (135-145); Total Protein 8.2 g/dL (6.5-8.0); Triglycerides 117 mg/dL (<150)
== END 2024-06-17 10:26 | disposition home or self-care (01) ==
LOC: HO.LAB 10:25
PROVIDERS: PCP Physician Assistant; Visit Provider Physician Assistant
DX: I10 Essential (primary) hypertension (principal); N95.0 Postmenopausal bleeding; E78.9 Disorder of lipoprotein metabolism, unspecified
CPT/HCPCS: 36415; 80053; 80061; 85027

== ENCOUNTER 2024-10-06 14:37 | Outpatient (AMB) | payer OTHER, SELFPAY ==
--- NOTE | 2024-10-06 14:42 | A.OFFVIS_ITS ---
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 Kitchen Steward Required: No Allergies acetaminophen [Percocet] Allergy (Unknown, Verified 04/14/24 13:52) Unknown diazepam Allergy (Unknown, Verified 04/14/24 13:52) anxiety oxycodone Allergy (Unknown, Verified 04/14/24 13:52) unknown suvorexant [Belsomra] Allergy (Unknown, Verified 04/14/24 13:52) inadequate response trazodone Allergy (Unknown, Verified 04/14/24 13:52) unknown lisinopril Adverse Reaction (Intermediate, Verified 04/14/24 13:52) Cough tramadol Adverse Reaction (Unknown, Verified 04/14/24 13:52) abdominal pain Is last menstrual period known: Yes Last menstrual period: 01/09/21 Post menopausal: Yes Patient : No HPI Comments Details: 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 She is doing well with concerns: increased stress level, PTSD-not eating much. Currently not sexually active-partner incarcerated until 2024. Denies any vaginal dryness or irritation. STI testing offered; she accepts. Last pap smear; 2021. Last mammogram; 2022. Cologard is UTD. Denies any family history of breast, ovarian or colon cancer. [facility] Medical History (Updated 10/06/24 @ 15:32 by Margret Montoya CNM) Urinary incontinence in female Cervical disc disease Knee osteoarthritis Fibromyalgia PTSD (post-traumatic stress disorder) YAMILETH (generalized anxiety disorder) Chronic knee pain Surgical History History of tubal ligation History of knee surgery Family History Mother Dementia Arthritis Mental health disorder Father Arthritis Heart disease Skin cancer Social History Housing: Apartment Alcohol intake: never Patient Tobacco Use Status: Former Tobacco user Tobacco use type: Cigarette Cigarettes Per Day: 0 e-Cigarette/Vaping Use: Never Used Substance Use Type: Marijuana service: No Current occupational status: disabled Cognitive needs: No Hearing needs: No Vision needs: No Female Reproductive History Menstrual Age of Menarche: 11 Date of last menstrual period: 01/09/21 Menopause type: natural Date of menopause: 12/25/21 Age of menopause: 52 Total pregnancies: 4 Full term: 3 Premature: 0 Number of Living Children: 3 Ab induced: 1 Ab spontaneous: 0 Ectopics: 0 Multiple births: 0 Date of last pap smear: 01/09/22 History of abnormal pap smear: No History of STI: No Review of Systems Const All systems reviewed & are unremarkable except as noted in HPI and below Reports as per HPI Eyes Reports no additional complaints ENT Reports no additional complaints Card Reports no additional complaints Resp Reports no additional complaints GI Reports as per HPI and Reports no additional complaints Reports as per HPI Musc Reports no additional complaints Skin/Breast Reports as per HPI Neuro Reports no additional complaints Psych Reports no additional complaints Endo Reports no additional complaints Willie/Lymph Reports no additional complaints Aller/Immun Reports no additional complaints Physical Exam Const General: cooperative, healthy appearing, no acute distress, well developed and alert Orientation/consciousness: patient oriented x3 HEENT Head: Yes normal to inspection Eyes General: appearance normal, both eyes and all related structures Neck Neck: Yes normal visual inspection Thyroid: Thyroid normal Chest Chest palpation & inspection: normal inspection of the chest and other (no puckering, dimpling, peau de orange, retraction, discharge, masses) Breast/axilla inspection: normal inspection of the breasts Breast/axilla palpation: normal palpation of the breasts Resp Effort & Inspection: normal respiratory effort GI Inspection: Yes normal to inspection Palpation (GI): Soft to palpation Rectal Exam - Female: deferred General: Yes bladder normal to palpation External Female Exam: normal external appearance and normal appearance of the urethra Speculum Exam - Vagina: normal palpation and vagina atrophic Speculum Exam - Cervix: normal appearance of the cervix and normal palpation Bimanual exam- vagina & uterus: normal bimanual exam, normal palpation, uterine size normal, bladder normal to palpation, normal palpation and non-tender Bimanual Exam- Adnexa, other: no masses Skin General skin exam: no rashes or lesions noted Rashes: no rashes Neuro General: patient oriented x3 Cognition (Neuro): normal cognition Extrem General: Yes normal to inspection Psych Attitude: cooperative Thought process: Normal thought process present Assessment & Plan Assessment & Plan (1) Encounter for annual routine gynecological examination: Code(s): Z01.419 - Encounter for gynecological examination (general) (routine) without abnormal findings Category: Medical (2) Possible exposure to STD: Code(s): Z20.2 - Contact with and (suspected) exposure to infections with a predominantly sexual mode of transmission Plan Discussed: Current recommendations for pap smears per ASCCP guidelines. Breast awareness, periodic self breast exams and yearly mammogram. Mammogram ordered. Maintain a healthy lifestyle, well balanced diet including Calcium 1,200 mg and Vitamin D 600 IU daily, and routine exercise when physically able to. Calcium information provided with a handout. Advised to talk to her primary care before starting any herbal supplements as they can conflict with her medications. Follow up with specialty practice for her RA and fibromyalgia. Use of condoms for STI prevention if indicated. Contact the office with any postmenopausal bleeding. Patient verbalizes understanding and agrees to the plan of care. She was given opportunity to ask questions and all questions were answered to the best of my ability. 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 This note is constructed using voice recognition software. While every effort has been made to ensure accuracy, bottom painter errors may have been included. Orders: Orders MM tomosynthesis screening BI Today Z12.31 - Encounter for screening mammogram for malignant neoplasm of breast HIV Ab/Ag Today Z20.2 - Contact with and (suspected) exposure to infections with a predominantly sexual mode of transmission Hepatitis C Antibody Reflex Today Z20.2 - Contact with and (suspected) exposure to infections with a predominantly sexual mode of transmission Syphilis Screen Today Z20.2 - Contact with and (suspected) exposure to infections with a predominantly sexual mode of transmission Hepatitis B Core Antibody Today Z20.2 - Contact with and (suspected) exposure to infections with a predominantly sexual mode of transmission Coding Level of Care Code Est Pt Prev Care 40-64y(26242) Diagnoses Encounter for annual routine gynecological examination Z01.419 Possible exposure to STD Z20.2
[2024-10-06 14:51] VITALS: BP 122/62; BMI 24.7
== END 2024-10-06 15:36 | disposition home or self-care (01) ==
PROVIDERS: PCP Physician Assistant; Visit Provider Advanced Practice Midwife
DX: Z01.419 Encounter for gynecological examination (general) (routine) without abnormal findings (principal); Z20.2 Contact with and (suspected) exposure to infections with a predominantly sexual mode of transmission
CPT/HCPCS: 99396

== ENCOUNTER 2024-10-06 14:37 | Outpatient (REF) | payer OTHER, SELFPAY ==
[2024-10-08 12:27] LABS: Bacterial Vaginosis PCR NEGATIVE (Negative); Candida Group PCR NOT DETECTED (Not Detect); Candida glab krusei PCR NOT DETECTED (Not Detect); Trichomonas vaginalis PCR NOT DETECTED (Not Detect)
[2024-10-08 13:40] LABS: CT PCR NOT DETECTED (Not Detect.); NG PCR NOT DETECTED (Not Detect.)
== END 2024-10-06 14:38 | disposition home or self-care (01) ==
LOC: HO.LNP 14:37
PROVIDERS: PCP Physician Assistant; Visit Provider Advanced Practice Midwife
DX: Z01.419 Encounter for gynecological examination (general) (routine) without abnormal findings (principal); Z20.2 Contact with and (suspected) exposure to infections with a predominantly sexual mode of transmission
CPT/HCPCS: 0352U; 87491; 87591; 99396

== ENCOUNTER 2024-10-18 09:05 | Outpatient (AMB) | payer OTHER, SELFPAY ==
[2024-10-18 09:22] VITALS: BP 118/76; PULSE 72; O2SAT 100; BMI 22.5
--- NOTE | 2024-10-18 09:22 | MHC.PC.OV ---
Vital Signs 10/18/24 09:22 Height 5 ft 2 in Weight 123 lb 4 oz BMI 22.5 BP 118/76 Blood Pressure Location Lt brachial Position Sitting Pulse 72 Pulse Source Pulse Oximeter Pulse Oximetry (%) 100 Oxygen Delivery Method Room Air Intake Visit Reasons: PE Intake Note: Patient is here today for a physical. Transformer Mechanic Required: No Accompanied by: Self / Same As Patient Allergies acetaminophen [Percocet] Allergy (Unknown, Verified 10/18/24 09:24) Unknown diazepam Allergy (Unknown, Verified 10/18/24 09:24) anxiety oxycodone Allergy (Unknown, Verified 10/18/24 09:24) unknown suvorexant [Belsomra] Allergy (Unknown, Verified 10/18/24 09:24) inadequate response trazodone Allergy (Unknown, Verified 10/18/24 09:24) unknown lisinopril Adverse Reaction (Intermediate, Verified 10/18/24 09:24) Cough tramadol Adverse Reaction (Unknown, Verified 10/18/24 09:24) abdominal pain Medication List - Last Reconciled 10/18/24 by Mahesh Dillon PA-C albuterol sulfate 90 mcg/actuation 2 puffs inhalation Q4H PRN 30 days alprazolam 1 mg PO BID PRN baclofen 10 mg PO BID PRN blood pressure test kit-medium As directed cane As directed cholecalciferol (vitamin D3) 50 mcg PO DAILY 90 days citalopram 40 mg PO QAM gabapentin 100 mg PO TID 30 days hydrochlorothiazide 12.5 mg PO DAILY ibuprofen 800 mg PO BID PRN losartan 25 mg PO DAILY 90 days oxybutynin chloride ER 5 mg PO DAILY 90 days quetiapine 100 mg PO BID simvastatin 10 mg PO DAILY 90 days valacyclovir (Valtrex) 1,000 mg PO DAILY 14 days Tobacco use date assessed: 10/18/24 Dental Screening Dental Screen Date: 10/18/24 Did you have a dental visit in the last 12 months?: Yes Did you have a dental problem in the last 6 months where you did not have access to dental care?: No Was dental information given to patient?: Patient has dentist HPI PE HPI Details Patient is a 54-year-old female here today a a routine annual physical.? Patient has a past medical history significant for fibromyalgia, osteoarthritis of the right knee, cervical discs disease, borderline high cholesterol, major depressive disorder anxiety. Concerns--> patient reports her bone pain has become worse over the last few months. She has lost weight since last office visit. She is requesting to see a director of claims. She has had baseline rheumatology testing in the past cleaning NAYE, rheumatoid factor anti CCP which were negative. Of note she does have significant osteoarthritis in her knees to which she uses knee braces and a cane. She reports gabapentin 100 mg has helped her with her overall pain. She becomes very emotional when talking about her pain issues in her lack of ability to do her activities of daily living. She is interested in a CHEESE MAKER to help her with her activities of daily living. .. Major depressive disorder:? Continues to follow a psychiatrist and mental health therapist who manages her mental health medications.? She continues to suffer from a depressive disorder and mostly stays in her home.? She relays that she is unable to work and concentrate on work tasks due to her depression and anxiety ? .. . Borderline high cholesterol:? Most recent lipid panel showing borderline high total cholesterol.? She working on lifestyle to reduce high cholesterol foods in her diet.? Will recheck lipid panel fasting before next visit. .. Mammogram: Done in February 2023 BI-RADS 1-needs repeat screening mammogram . Colon cancer screening: Cologuard done in October of 2023 - neg- repeat 3 years . WOOD TECHNOLOGIST: followed by Yael WOOD TECHNOLOGIST - . Vaccines: Up-to-date with pneumonia vaccine and shingles vaccine. Declines flu vaccine and COVID vaccines [facility] Medical History Urinary incontinence in female Cervical disc disease Knee osteoarthritis Fibromyalgia PTSD (post-traumatic stress disorder) YAMILETH (generalized anxiety disorder) Chronic knee pain Surgical History History of tubal ligation History of knee surgery Family History Mother Dementia Arthritis Mental health disorder Father Arthritis Heart disease Skin cancer Social History Housing: Apartment Alcohol intake: never Patient Tobacco Use Status: Former Tobacco user Tobacco use type: Cigarette Cigarettes Per Day: 0 e-Cigarette/Vaping Use: Never Used Substance Use Type: Marijuana service: No Current occupational status: disabled Cognitive needs: No Hearing needs: No Vision needs: No Female Reproductive History Menstrual Age of Menarche: 11 Date of menopause: 12/25/21 Questionnaire PHQ-9 Over the last 2 weeks, how often have you been bothered by any of the following problems? 1. Little interest or pleasure in doing things: nearly every day 2. Feeling down, depressed, or hopeless: nearly every day 3. Trouble falling or staying asleep, or sleeping too much: more than half the days 4. Feeling tired or having little energy: more than half the days 5. Poor appetite or overeating: nearly every day 6. Feeling bad about yourself - or that you are a failure or have let yourself or your family down: several days 7. Trouble concentrating on things, such as reading the newspaper or watching television: nearly every day 8. Moving or speaking so slowly that other people could have noticed. Or the opposite - being so fidgety or restless that you have been moving around a lot more than usual: more than half the days 9. Thoughts that you would be better off or of hurting yourself in some way: not at all Total score: 19 Depression Screening Interpretation: Positive Depression Screening Follow-up: Existing condition and In treatment Depression Screening Done: Yes 37846 - PHQ-9 Billing: Yes Source: Developed by Drs. Nadeem Kasper, Dawn Meraz, Demetrius Rosales and colleagues, with an educational prema from [employer]. Thrive Questionnaire Date Thrive assessed: 10/18/24 I am a: Patient What is your living situation today?: I choose not to answer this question Within the past 12 months, did the food you bought not last and you didn't have the money to get more?: I choose not to answer this question Within the past 12 months, did you worry whether your food would run out before you got money to buy more?: I choose not to answer this question Do you have trouble paying for medicines?: I choose not to answer this question Do you have trouble getting transportation to medical appointments?: No Do you have trouble paying your heating and electricity bill?: No Do you have trouble taking care of your child, family member or friend?: No Do you have trouble with day-to-day activities such as bathing, preparing meals, shopping, managing finances, etc.?: Yes Are you currently unemployed and looking for a job?: No Are you interested in more education?: I choose not to answer this question Please select the resources that you would like help with: None Currently or been in a relationship where the following occur: I choose not to answer THRIVE Score: 0 AUDIT C Alcohol Use Questionnaire (AUDIT-C) 1. How often do you have a drink containing alcohol?: Never 3. How often do you have six or more drinks on one occasion?: Never Total Score: 0 YAMILETH-7 AMB Questionnaire YAMILETH-7 Date YAMILETH - 7 assessed: 10/18/24 Feeling nervous, anxious, or on edge: 2 = More than half the days Not being able to stop or control worryin = Nearly every day Worrying too much about different things: 3 = Nearly every day Trouble relaxin = More than half the days Being so restless that it is hard to sit still: 2 = More than half the days Becoming easily annoyed or irritable: 2 = More than half the days Feeling afraid as if something awful might happen: 2 = More than half the days Total YAMILETH-7 score (0-4 normal; 5-9 mild; 10-14 moderate; 15-21 severe): 16 Source: Developed by Drs. Nadeem Kasper, Dawn Meraz, Demetrius Rosales and colleagues, with an educational prema from [employer]. YAMILETH-7 Assessment Billing YAMILETH-7 Assessment Tool: YAMILETH-7 Assessment 24960 Review of Systems Const Denies body aches, Denies chills, Denies excessive sweating, Denies fatigue, Denies fever(s) and Denies headache(s) Eyes Denies blurry vision ENT Denies dysphagia, Denies vertigo, Denies dizziness, Denies headache(s), Denies hearing loss and Denies tinnitus Card Denies chest pain, Denies chest pain with activity, Denies syncope, Denies irregular heart rhythm and Denies dyspnea Resp Denies chest congestion, Denies cough, Denies hemoptysis, Denies dyspnea and Denies wheezing GI Denies abdominal pain, Denies melena, Denies hematochezia, Denies coffee ground emesis, Denies dysphagia, Denies diarrhea, Denies nausea and Denies vomiting Denies urinary frequency, Denies dysuria, Denies urinary hesitancy and Denies urinary urgency Musc Reports back pain, Reports arthralgias, Denies limited range of motion, Denies muscle cramps, Reports muscle weakness and Reports stiffness Skin/Breast Denies rash and Denies skin ulcer Neuro Denies Abnormal speech present, Denies confusion, Denies vertigo, Denies dizziness, Denies syncope, Denies headache(s), Denies memory loss and Denies seizure-like activity Psych Denies anxiety, Denies confusion, Denies depression, Denies memory loss, Denies panic attacks and Denies paranoia Endo Denies excessive sweating, Denies fatigue, Denies flushing, Denies polydipsia and Denies polyuria Aller/Immun Denies wheezing Physical exam (Primary Care) Vital Signs: Last Vital Signs Pulse 72 10/18/24 09:22 BP 118/76 10/18/24 09:22 Pulse Ox 100 10/18/24 09:22 Oxygen Delivery Method Room Air 10/18/24 09:22 BMI result Body Mass Index 22.5 Tobacco/Smoking Status: Tobacco use Status Tobacco use date assessed 10/18/24 10/18/24 09:24 Patient Tobacco Use Status Former Tobacco user 10/18/24 09:24 Tobacco use type Cigarette 10/18/24 09:24 e-Cigarette/Vaping Use Never Used 10/18/24 09:24 PHQ-9: PHQ-9 Score PHQ-9: Total score 19 10/24/24 08:03 Depression Screening Interpretation: Positive Depression Screening Follow-up: Existing condition and In treatment Thrive Assessment: Date of Thrive Assessment Date Thrive assessed 10/18/24 10/18/24 09:24 Currently or been in a relationship where the following occur: I choose not to answer Const General: cooperative, comfortable, no acute distress, alert and awake; No confusion Orientation/consciousness: oriented to person, oriented to place, patient oriented x3 and No confusion HENMT Head: Yes normocephalic Ears: external ears normal and TM's normal bilaterally Face and sinus: No sinus tenderness Mouth: Normal oral and palatal mucosa present and tongue normal Teeth and gingiva: dentition normal and gingiva normal Throat: Yes posterior oropharynx normal, Yes tonsils normal and Yes uvula midline Eyes Conjunctivae: conjunctivae normal Sclerae: sclerae normal Pupils: Equal, round and reactive pupils present EOM: EOMs intact bilaterally Direct Ophthalmoscopy: No no photophobia Neck Neck: Yes no lymphadenopathy, No tender and Yes no JVD Thyroid: Thyroid normal Carotids: no bruits Chest Chest palpation & inspection: no tenderness Resp Effort & Inspection: normal respiratory effort, no audible wheezes, not labored and no stridor Auscultation: no crackles, no rales, no rhonchi and no wheezes Cardio Jugular venous distension: no JVD Rate: regular rate, not bradycardic and not tachycardic Rhythm: regular rhythm Bruits: no carotid bruits Peripheral pulses: Peripheral pulses 2+ throughout GI Inspection: Yes normal to inspection, No abdominal wall ecchymosis and No visible herniation Palpation (GI): Soft to palpation, nontender, no guarding, not rigid and No hepatosplenomegaly present Auscultation: normoactive bowel sounds General: Yes no CVA tenderness Back/Spine/Pelvis Back: no CVA tenderness and No back tenderness Cervical Spine: cervical ROM normal Thoracic/Lumbar Spine: thoracic and lumbar spine normal to inspection, straight leg raise negative bilaterally, No thoraco-lumbar ROM limited and No lumbar spinal tenderness Skin Lesions: no lesions Rashes: no rashes Wounds: no wounds Neuro General: oriented to person, oriented to place, patient oriented x3, CN's II-XI intact bilaterally and No confusion Cranial nerves: Yes Equal, round and reactive pupils present and Yes Normal accommodation reflex present Cognition (Neuro): normal cognition Speech: No Abnormal speech present Gait exam (Neuro): Normal gait present Motor exam (neuro): 5/5 motor strength present throughout Extrem Right upper extremity: full ROM; no cyanosis Left upper extremity: full ROM; no cyanosis Right lower extremity: no edema Left lower extremity: no edema Psych Appearance: grossly normal Mental Status: mental status grossly normal Affect: normal affect Attitude: cooperative Thought process: Normal thought process present Office Procedures Flu Questionnaire Does the patient have a severe egg allergy?: No Immunizations Fluarix Triv [id number] (PF) 45 mcg (15 mcg x 3)/0.5 mL IM syringe Performing Provider: Mahesh Dillon PA-C Performing Location: [facility] [place] [facility] Documented (not given) by: AMINA Rodríguez on 10/18/24 09:25 Reason Not Given: Patient Refused Coding Level of Care Code Est Pt Prev Care 40-64y(89673) Diagnoses Annual physical exam Z00.00 Mixed hyperlipidemia E78.2 Hyperlipidemia type: mixed hyperlipidemia Primary osteoarthritis of both knees M17.0 Laterality: bilateral Osteoarthritis type: primary Primary hypertension I10 Hypertension type: primary hypertension Fibromyalgia M79.7 MDD (major depressive disorder), recurrent episode, moderate F33.1 YAMILETH (generalized anxiety disorder) F41.1 Encounter for screening mammogram for malignant neoplasm of breast Z12.31 Breast cancer screening modality: mammogram Additional Codes YAMILETH-7 Assessment Billing - YAMILETH-7 Assessment Tool: YAMILETH-7 Assessment 65121 ([id number]) PHQ-9 - 84231 - PHQ-9 Billing: Yes ([id number]) Assessment & Plan Assessment & Plan (1) Annual physical exam: Code(s): Z00.00 - Encounter for general adult medical examination without abnormal findings Category: Medical Plan: As per HPI (2) HLD (hyperlipidemia): Code(s): E78.5 - Hyperlipidemia, unspecified Category: Medical Qualifiers: Hyperlipidemia type: mixed hyperlipidemia Qualified Code(s): E78.2 - Mixed hyperlipidemia Plan: Patient continues on low-dose statin therapy with good effect. Most recent lipid panel showing good control over total cholesterol and LDL. (3) Knee osteoarthritis: Code(s): M17.10 - Unilateral primary osteoarthritis, unspecified knee Category: Medical Qualifiers: Laterality: bilateral Osteoarthritis type: primary Qualified Code(s): M17.0 - Bilateral primary osteoarthritis of knee Plan: Patient has pretty significant bilateral knee osteoarthritis. Has had a left knee replacement. Continues to have pain and some instability to which she is asking for CHEESE MAKER services to help her with activities of daily living. (4) HTN (hypertension): Code(s): I10 - Essential (primary) hypertension Category: Medical Qualifiers: Hypertension type: primary hypertension Qualified Code(s): I10 - Essential (primary) hypertension Plan: Patient's blood pressure acceptable today in office. Will continue her current dose of antihypertensive medication with goal blood pressure to remain below 140/90. (5) Fibromyalgia: Code(s): M79.7 - Fibromyalgia Category: Medical Plan: Patient does seem to have an element of fibromyalgia. She does take gabapentin 100 mg t.i.d. which has helped though she does report getting 300 mg from the pharmacy which causes her too much side effect. She would like to see director of claims for further evaluation as she continues to have bone type pain that is pretty widespread. (6) MDD (major depressive disorder), recurrent episode, moderate: Code(s): F33.1 - Major depressive disorder, recurrent, moderate Category: Medical Plan: Patient's PHQ-9 score positive for major depressive disorder which has been existing condition for her. She continues with medication and follow up with her psychiatrist (7) YAMILETH (generalized anxiety disorder): Code(s): F41.1 - Generalized anxiety disorder Category: Medical Plan: Patient's YAMILETH-7 score positive for anxiety which has been existing condition for her. Again follows up with her mental health therapist and a psychiatrist. (8) Breast cancer screening: Code(s): Z12.39 - Encounter for other screening for malignant neoplasm of breast Category: Medical Qualifiers: Breast cancer screening modality: mammogram Qualified Code(s): Z12.31 - Encounter for screening mammogram for malignant neoplasm of breast Plan: Due for screening mammogram Orders: Orders Influenza [id number] Immunization 10/18/24 Z23 - Encounter for immunization Lipid Panel 10/18/24 E78.5 - Hyperlipidemia, unspecified Comprehensive [place]. Panel Fast 10/18/24 E78.5 - Hyperlipidemia, unspecified Complete Blood Count no Diff 10/18/24 E78.5 - Hyperlipidemia, unspecified Anti DNA DS Antibody 10/18/24 M13.0 - Polyarthritis, unspecified Referrals Rheumatology Referral M13.0 - Polyarthritis, unspecified Medications: New lidocaine 5% leave on most painful area for up to 12 hrs 1 patch topical DAILY 30 ea 3RF 30 days M17.0 - Bilateral primary osteoarthritis of knee Refilled baclofen 10 mg PO BID PRN 60 tabs 3RF for muscle spasm M50.90 - Cervical disc disorder, unspecified, unspecified cervical region, M54.2 - Cervicalgia cholecalciferol (vitamin D3) 50 mcg PO DAILY 90 caps 1RF 90 days E55.9 - Vitamin D deficiency, unspecified, E78.9 - Disorder of lipoprotein metabolism, unspecified gabapentin 100 mg PO TID 90 caps 3RF 30 days M17.0 - Bilateral primary osteoarthritis of knee hydrochlorothiazide 12.5 mg PO DAILY 90 tabs 1RF I10 - Essential (primary) hypertension oxybutynin chloride ER 5 mg PO DAILY 90 tabs 1RF 90 days N32.89 - Other specified disorders of bladder ibuprofen 800 mg PO BID PRN 60 tabs 0RF for pain M50.90 - Cervical disc disorder, unspecified, unspecified cervical region, M79.7 - Fibromyalgia losartan 25 mg PO DAILY 90 tabs 1RF 90 days I10 - Essential (primary) hypertension
== END 2024-10-18 09:58 | disposition home or self-care (01) ==
PROVIDERS: PCP Physician Assistant; Visit Provider Physician Assistant
DX: Z00.00 Encounter for general adult medical examination without abnormal findings (principal); F33.1 Major depressive disorder, recurrent, moderate; E78.2 Mixed hyperlipidemia; M17.0 Bilateral primary osteoarthritis of knee; I10 Essential (primary) hypertension; M79.7 Fibromyalgia; F41.1 Generalized anxiety disorder; Z12.31 Encounter for screening mammogram for malignant neoplasm of breast

== ENCOUNTER → 2024-10-18 09:05 | Outpatient (BNVA) | payer OTHER, SELFPAY | PROVIDERS: PCP Physician Assistant; Visit Provider Physician Assistant | DX: Z00.00 Encounter for general adult medical examination without abnormal findings (principal); E78.2 Mixed hyperlipidemia; M17.0 Bilateral primary osteoarthritis of knee; I10 Essential (primary) hypertension; M79.7 Fibromyalgia; F33.1 Major depressive disorder, recurrent, moderate; F41.1 Generalized anxiety disorder | CPT/HCPCS: 90471; 96127; 99396 ==

== ENCOUNTER 2024-10-24 13:08 | Outpatient (REF) | payer OTHER, SELFPAY ==
--- NOTE | ~2024-10-24 | MM_ITS ---
EXAMINATION: MM SCREENING DIGITAL BREAST TOMOSYNTHESIS, BILATERAL CLINICAL INFORMATION: Screening. Asymptomatic. COMPARISON: Mammography: Comparison is made with available priors TECHNIQUE: Digital breast mammography with tomosynthesis is performed in both the craniocaudal and mediolateral oblique views along with computer-aided detection (CAD). FINDINGS: The breasts are heterogeneously dense, which may obscure small masses (ACR BI-RADS breast composition Category c). There are no significant masses, abnormal calcifications, or other abnormalities. MM/MM tomosynthesis screening BI IMPRESSION: No mammographic evidence of malignancy. ASSESSMENT: BI-RADS BI-RADS 1 - Negative RECOMMENDATION: Routine annual mammography screening. 1 year F/U This examination should not preclude the clinical evaluation of a suspicious palpable abnormality. This patient's information was entered into a reminder system with a target due date for their next mammogram. Electronically signed by: Alissa Durbin DO 10/28/2024 08:05 PM [id number]
== END 2024-10-24 13:09 | disposition home or self-care (01) ==
LOC: HO.MAMMO 13:08
PROVIDERS: PCP Physician Assistant; Visit Provider Advanced Practice Midwife
DX: Z12.31 Encounter for screening mammogram for malignant neoplasm of breast (principal)
CPT/HCPCS: 77063; 77067

== ENCOUNTER → 2024-10-24 15:30 | Outpatient (BNV) | payer OTHER, SELFPAY | PROVIDERS: PCP Physician Assistant; Visit Provider Internal Medicine | DX: Z12.31 Encounter for screening mammogram for malignant neoplasm of breast (principal) | CPT/HCPCS: 77063; 77067 ==

== ENCOUNTER 2025-01-16 10:23 | Outpatient (REF) | payer OTHER, SELFPAY ==
[2025-01-16 10:59] LABS: Hematocrit 38.6 % (37.0-47.0); Hemoglobin 12.4 g/dl (12.0-16.0); Mean Corpuscular HGB Conc 32.1 g/dl (31.0-35.0); Mean Corpuscular Hemoglobin 29.6 pg (27.0-33.0); Mean Corpuscular Volume 92.1 fL (80.0-98.0); Mean Platelet Volume 9.6 fL (9.4-12.3); Platelet Count 428 X10*3/uL (160-400); Red Blood Count 4.19 X10*6/uL (4.20-5.50); White Blood Count 8.3 X10*3/uL (4.8-10.8)
[2025-01-16 11:47] LABS: Syphilis Screen Nonreactive (Nonreactive)
[2025-01-16 12:12] LABS: HBc Num1 0.17 S/CO (0.00-0.79); HIV AB/AG Nonreactive (Nonreactive); HIV Num 1 0.06 S/CO (0.00-0.99); Hepatitis B Core Antibody Nonreactive (Nonreactive); ~HepC Num1 0.13 S/CO (0.00-0.79); ~Hepatitis C Antibody Nonreactive (Nonreactive)
[2025-01-16 12:35] LABS: Alanine Aminotransferase 21 U/L (0-31); Albumin Level 3.9 g/dL (3.5-5.0); Alkaline Phosphatase 156 U/L (39-117); Anion Gap 13 (12-20); Aspartate Amino Transferase 26 U/L (5-31); Bilirubin Total 0.3 mg/dL (0.0-1.0); Blood Urea Nitrogen 14 mg/dL (9-16); Calcium 9.7 mg/dL (8.4-10.2); Carbon Dioxide 27 mmol/L (22-29); Chloride 105 mmol/L (96-108); Cholesterol 198 mg/dL (<200); Estimated Glomerular Filt Rate > 60; Glucose Fasting 94 mg/dL (60-99); HDL Cholesterol 50 mg/dL (>40); LDL Cholesterol Calculated 130 mg/dL (<100); Sodium 141 mmol/L (135-145); Total Protein 8.5 g/dL (6.5-8.0); Triglycerides 90 mg/dL (<150)
[2025-01-17 20:48] LABS: Anti DNA DS Antibody <1 IU/mL
== END 2025-01-16 10:24 | disposition home or self-care (01) ==
LOC: HO.LAB 10:23
PROVIDERS: Advanced Practice Midwife; PCP Physician Assistant; Visit Provider Physician Assistant
DX: E78.5 Hyperlipidemia, unspecified (principal); M13.0 Polyarthritis, unspecified; Z20.2 Contact with and (suspected) exposure to infections with a predominantly sexual mode of transmission
CPT/HCPCS: 36415; 80053; 80061; 85027; 86225; 86704; 86780; 86803; 87389

== ENCOUNTER 2025-03-09 09:42 | Outpatient (AMB) | payer OTHER, SELFPAY ==
--- NOTE | 2025-03-09 09:51 | MHC.OFFVIS ---
Vital Signs 03/09/25 10:00 Height 5 ft 2 in Weight 116 lb 6.465 oz BMI 21.3 BP 115/70 Blood Pressure Location Rt brachial Position Sitting Pulse 77 Pulse Source Pulse Oximeter Pulse Oximetry (%) 100 Oxygen Delivery Method Room Air Intake Visit Reasons: Polyarthritis/New Patient Intake Note: Patient presents today for Polyarthritis. My antired body hurts and been battling this for about 13 years. Taking Gabapentin and is not working. Allergies acetaminophen [Percocet] Allergy (Unknown, Verified 03/09/25 09:58) Unknown diazepam Allergy (Unknown, Verified 03/09/25 09:58) anxiety oxycodone Allergy (Unknown, Verified 03/09/25 09:58) unknown suvorexant [Belsomra] Allergy (Unknown, Verified 03/09/25 09:58) inadequate response trazodone Allergy (Unknown, Verified 03/09/25 09:58) unknown lisinopril Adverse Reaction (Intermediate, Verified 03/09/25 09:58) Cough tramadol Adverse Reaction (Unknown, Verified 03/09/25 09:58) abdominal pain Medication List - Last Reconciled 03/09/25 by Elle Bhatia MD albuterol sulfate 90 mcg/actuation 2 puffs inhalation Q4H PRN 30 days alprazolam 1 mg PO BID PRN baclofen 10 mg PO BID PRN blood pressure test kit-medium As directed cane As directed cholecalciferol (vitamin D3) 50 mcg PO DAILY 90 days citalopram 40 mg PO QAM gabapentin 100 mg PO TID 30 days hydrochlorothiazide 12.5 mg PO DAILY ibuprofen 800 mg PO BID PRN lidocaine 5% 1 patch topical DAILY 30 days losartan 25 mg PO DAILY 90 days oxybutynin chloride ER 5 mg PO DAILY 90 days quetiapine 100 mg PO BID simvastatin 10 mg PO DAILY 90 days valacyclovir (Valtrex) 1,000 mg PO DAILY 14 days HPI Comments Details: Patient is a 54-year-old female with asthma, anxiety/depression, hypertension, hyperlipidemia, polyarticular osteoarthritis (knee and spine) today for evaluation of polyarthralgias Patient states that she emigrated to the [place] in [place]. Around that time she had a fall and subsequently had arthroscopy in bilateral knees. Since then she continues to have pain in her knees. Subsequently got right TKR 01/2023. Currently her left knee is swollen and painful. Also has pain in her neck and low back, as well as right shoulder. No known family history of autoimmune disease Denies rashes, photosensitivity, alopecia, oral/nasal ulcers, sicca symptoms, lymphadenopathy, chest pain/shortness of breath, foamy urine, lower extremity edema, muscle weakness, Raynaud's Also denies history of seizure, CVA, psychosis, history of kidney problems, history of cytopenias, history of VTE including PE or DVTs [facility] Medical History Urinary incontinence in female Cervical disc disease Knee osteoarthritis Fibromyalgia PTSD (post-traumatic stress disorder) YAMILETH (generalized anxiety disorder) Chronic knee pain Surgical History History of tubal ligation History of knee surgery Family History Mother Dementia Arthritis Mental health disorder Father Arthritis Heart disease Skin cancer Social History Housing: Apartment Alcohol intake: never Patient Tobacco Use Status: Former Tobacco user Tobacco use type: Cigarette Cigarettes Per Day: 0 e-Cigarette/Vaping Use: Never Used Substance Use Type: Marijuana service: No Current occupational status: disabled Cognitive needs: No Hearing needs: No Vision needs: No Female Reproductive History Menstrual Age of Menarche: 11 Date of menopause: 12/25/21 Review of Systems Const Details: Review of Systems Constitutional: Denies fever, chills, weight loss ENT: Denies vision changes, eye pain or eye redness, dental caries, dry mouth GI: Denies nausea, vomiting, diarrhea, abdominal pain, change in BM Pulm: Denies SOB, CLARK, hemoptysis, wheezing Cards: Denies chest pain, palpitations Skin: Denies Raynaud's, rash, nail changes, photosensitivity, 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 Well appearing and in no apparent painful distress HEENT Conjunctiva and sclera clear. ?Pupils equal round and reactive to light. ?No lymphadenopathy. ? CHEST/RESPIRATORY SYSTEM Normal respiratory effort and able to speak in complete sentences. ?Clear to auscultation bilaterally. ?No crackles, rales, rhonchi, wheezes heard. CARDIAC SYSTEM Regular rate and rhythm. ?S1 and S2 heard no murmurs. 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 No deformities noted. ?No synovitis noted to the MCPs, PIPs or DIPs. ?No tenderness to palpation of these joints. Wrists: ?Full range of motion at the wrists without pain. ?No tenderness to palpation or synovitis noted to the wrists. Elbows: Full range of motion without pain. No tenderness, weakness, swelling, increased warmth or erythema. Shoulders: Decreased active ROM on the right with obvious swelling of the subacromial bursa and TTP. Knees: ?Surgical scar over odalys right knee. Left knee with effusion, warmth and TTP Ankles: Full range of motion. ?No tenderness, swelling, increased warmth or erythema.? Feet: ?Negative squeeze test. ?No tenderness to palpation or swelling of the MTPs. Tender points:?No tenderness to palpation of the bilateral trapezius, supraspinatus, greater trochanters, anterior costochondral junctions, bilateral gluteal areas, bilateral suboccipital muscle insertions SKIN Skin intact without rashes. Office Procedures AMB Joint Injection/Aspiration Joint Injection/Aspiration Details: Procedure was explained to the patient and consent was obtained. ? The area of interest was identified and confirmed with patient. ?This was subsequently cleaned with chlorhexidine x3. ? The area was then anesthetized using ethyl chloride spray. 35 cc straw colored fluid removed from knee 40 mg Kenalog with 1 cc 1% lidocaine was injected without issue. ?Minimal to no bleeding. ?Patient tolerated procedure. Primary Site: left knee Prep: site was prepped using aseptic technique and ethochloride spray was applied Injected: 40 mg of, Kenalog, with 1 mL of and 1% plain lidocaine Approach Used: lateral parapatellar Procedure: The patient tolerated the procedure well Coding 56608 - Large joint Procedure code (CPT) selection complete AMB Joint Injection/Aspiration Joint Injection/Aspiration Details: Procedure was explained to the patient and consent was obtained. ? The area of interest was identified and confirmed with patient. ?This was subsequently cleaned with chlorhexidine x3. ? The area was then anesthetized using ethyl chloride spray. 40 mg Kenalog with 1 cc 1% lidocaine was injected without issue. ?Minimal to no bleeding. ?Patient tolerated procedure. Primary Site: right shoulder Prep: site was prepped using aseptic technique and ethochloride spray was applied Injected: 40 mg of, Kenalog, with 1 mL of and 1% plain lidocaine Approach Used: other Procedure: The patient tolerated the procedure well Coding 94240 - Large joint Procedure code (CPT) selection complete Office Meds lidocaine (PF) 10 mg/mL (1 %) injection solution Performing Provider: Elle Bhatia MD Performing Location: [facility] [place] [facility] Administered by: Elle Bhatia MD on 03/09/25 12:44 Dose Route Admin Location Dispensed Lot Number Expiration Date [facility] [employer]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 1 mL Infiltration left knee 2 mL [id number] 02/21/27 92570-443-58 [employer] Kenalog 40 mg/mL suspension for injection Performing Provider: Elle Bhatia MD Performing Location: [facility] [place] [facility] Administered by: Elle Bhatia MD on 03/09/25 12:44 Dose Route Admin Location Dispensed Lot Number Expiration Date [facility] 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 40 mg intra-articular left knee 1 mL [id number] 05/23/26 [address]-6 [employer] lidocaine (PF) 10 mg/mL (1 %) injection solution Performing Provider: Elle Bhatia MD Performing Location: [facility] [place] [facility] Administered by: Elle Bhatia MD on 03/09/25 12:44 Dose Route Admin Location Dispensed Lot Number Expiration Date [facility] 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 1 mL Infiltration right shoulder 2 mL [id number] 02/21/27 88487-886-02 [employer] Kenalog 40 mg/mL suspension for injection Performing Provider: Elle Bhatia MD Performing Location: [facility] [place] [facility] Administered by: Elle Bhatia MD on 03/09/25 12:44 Dose Route Admin Location Dispensed Lot Number Expiration Date [facility] 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 40 mg intrabursal right shoulder 1 mL [id number] 05/23/26 [address]-6 [employer] Results Reviewed Results Reviewed: Laboratory Tests 11/27/22 01/16/25 10:45 10:45 WBC 8.3 RBC 4.19 L Hgb 12.4 Hct 38.6 Plt Count 428 H D ESR 82 H Sodium 141 Potassium 4.0 Chloride 105 Carbon Dioxide 27 BUN 14 Creatinine 0.62 AST 26 ALT 21 Alkaline Phosphatase 156 H Total Protein 8.5 H XR Right Knee 01/2022 FINDINGS: Mild lateral compartment joint space narrowing with lateral tibial plateau subchondral sclerosis and subchondral cystic change. Small tricompartmental marginal osteophytes. No acute fracture or dislocation. Moderate joint effusion. No abnormal soft tissue calcification. IMPRESSION: Moderate lateral as well as mild medial and patellofemoral compartment osteoarthritis, progressed when compared to the prior radiographs. Moderate joint effusion. Assessment & Plan Assessment & Plan (1) Polyarticular osteoarthritis: Code(s): M15.9 - Polyosteoarthritis, unspecified Plan: #Polyarticular OA Patient is a 54 y.o. female here today for evaluation of polyarticular joint pain. History and exam is consistent with OA. Discussed the diagnosis of osteoarthritis with the patient. That it is a chronic noninflammatory disorder characterized by loss of cartilage and can affect any and all joints of the body. Given her significant pain to the left knee and to the right shoulder 35 cc of straw-colored fluid was removed from the left knee and it was injected with 40 mg of Kenalog and steroids was injected to her right shoulder as well. Recommended topical diclofenac for her left knee as well as her bilateral hands. She can stop ibuprofen Plan - s/p steroid injection to left knee and right shoulder - fluid sent for analysis: cells, culture, crystals - Topical diclofenac 1% - RTC 6 months Plan I spent 30 minutes reviewing the record and labs, taking a history, examining the patient, discussing the treatment plan, ordering diagnostic work up and documenting in the medical record Orders: Orders AMB Joint Injection/Aspiration Today M17.0 - Bilateral primary osteoarthritis of knee Cell Ct wDiff Synovial Fl Today M17.0 - Bilateral primary osteoarthritis of knee AMB Joint Injection/Aspiration Today M75.51 - Bursitis of right shoulder Synov Fld Cult + Crystals Today M17.0 - Bilateral primary osteoarthritis of knee Medications: New diclofenac sodium 1% (Arthritis Pain (diclofenac)) apply to left knee and hands 4 times a day 4 grams topical QID 100 grams 5RF M17.0 - Bilateral primary osteoarthritis of knee Discontinued ibuprofen Discontinued Reason: Doctor's Order 800 mg PO BID PRN 60 tabs 0RF for pain M50.90 - Cervical disc disorder, unspecified, unspecified cervical region, M79.7 - Fibromyalgia Coding Level of Care Code New Pt Level 3 (78959) Complex EM visit Add On G2211 Diagnoses Polyarticular osteoarthritis M15.9 CPT Codes Coding - 09258 Large joint: 65838 - Large joint ([id number]) Coding - 47415 Large joint: 79809 - Large joint ([id number])
[2025-03-09 10:00] VITALS: BP 115/70; PULSE 77; O2SAT 100; BMI 21.3
== END 2025-03-09 10:57 | disposition home or self-care (01) ==
LOC: HO.RHE 09:43
PROVIDERS: PCP Physician Assistant; Visit Provider Student in an Organized Health Care Education/Training Program
DX: M17.0 Bilateral primary osteoarthritis of knee (principal); M75.51 Bursitis of right shoulder; M15.8 Other polyosteoarthritis
CPT/HCPCS: 20610; 99203

== ENCOUNTER 2025-03-09 09:42 | Outpatient (REF) | payer OTHER, SELFPAY ==
[2025-03-09 13:31] LABS: MN% 13.3 %; PMN% 86.7 %
[2025-03-09 13:32] LABS: RBC Synovial Fluid 0.002 X10*6/uL
[2025-03-09 14:15] LABS: Lymphocytes Synovial Fluid 9 %; Monocytes Synovial Fluid 10 %; Neutrophils Synovial Fluid 81 %
[2025-03-09 14:18] LABS: BF Shift QC OK YES
[2025-03-09 14:19] LABS: Man Diluent Bkgrd OK YES; Source Synovial Fluid KNEE
== END 2025-03-09 09:43 | disposition home or self-care (01) ==
LOC: HO.LNP 09:42
PROVIDERS: PCP Physician Assistant; Visit Provider Student in an Organized Health Care Education/Training Program
DX: M17.0 Bilateral primary osteoarthritis of knee (principal); M77.51 Other enthesopathy of right foot and ankle
CPT/HCPCS: 20610; 87070; 87073; 87205; 89051; 89060; 99202; J3300

== ENCOUNTER 2025-03-24 10:17 | Outpatient (REF) | payer OTHER, SELFPAY ==
--- NOTE | ~2025-03-24 | XR_ITS ---
EXAMINATION: BILATERAL wrist 4 views each. CLINICAL INDICATION: Osteoarthritis. COMPARISON: None. FINDINGS: Left knee: There is normal in maintained radial ulnar carpal, intercarpal and carpal metacarpal joint space. There is a negative ulnar variance. No fracture, dislocation or lytic process seen. The scapholunate junction and the scaphoid bone are intact. The soft tissues are normal. Right knee: There is negative ulnar variance. There is maintained radial ulnar carpal, intercarpal and carpometacarpal joint space. There is no fracture, dislocation or subluxation seen. The soft tissues are normal. XR/XR Wrist Suraj min 3V IMPRESSION: Bilateral negative ulnar variance. No acute fracture or dislocation seen. The joint spaces are maintained normal. No abnormal soft tissue calcification or soft tissue swelling Electronically signed by: Ancelmo Akers MD 03/24/2025 11:43 AM EDT
--- NOTE | ~2025-03-24 | XR_ITS ---
EXAMINATION: XR KNEE, LEFT CLINICAL INFORMATION: M19.90 - Unspecified osteoarthritis, unspecified site COMPARISON: Bilateral AP knee standing 1 foot 7 inches 2016 . TECHNIQUE: Four views of the left knee. FINDINGS: The tricompartment joint spaces maintain normal. There is minimal spurring along the medial compartment. There is mild osteopenia and degenerative the bone marrow. There is minimal suprapatellar joint effusion. No acute fracture or dislocation seen. There is minimal subchondral cystic changes along left femoral condyle. There are no loose bodies. XR/XR knee LT 3V IMPRESSION: Mild degenerative changes medial compartment with minimal suprapatellar joint effusion and subchondral cystic changes along the lateral femoral condyle No acute fracture or dislocation. Electronically signed by: Ancelmo Akers MD 03/24/2025 11:58 AM EDT
--- NOTE | ~2025-03-24 | XR_ITS ---
Examination: Bilateral hand, 3 views each. CLINICAL INDICATION: Osteoarthritis. COMPARISON: None. FINDINGS: Left hand: There is a minimal loss of PIP and DIP joint spaces with small bony erosive changes DIP joint second and third digit no acute fracture or dislocation seen. There is no periarticular spurring or soft tissue calcification. The MCP and CMCP joints are normal Right hand: There is minimal loss of PIP and DIP joint space. There is mild bony erosive changes DIP joint third digit. Rest the digits show no erosions or periarticular spurring. The soft tissues are normal: XR/XR Hand Bilat min 3v IMPRESSION: Mild erosive changes DIP joint of both hands suggestive of early degenerative osteoarthritis. There is no osteopenia, loose bodies or joint effusion noted. Electronically signed by: Ancelmo Akers MD 03/24/2025 11:54 AM EDT
--- NOTE | ~2025-03-24 | XR_ITS ---
EXAMINATION: Bilateral shoulders, 3 views each. CLINICAL INDICATION: Osteoarthritis. COMPARISON: None. FINDINGS: Right shoulder: Glenohumeral and AC joint space is maintained normal. No loose bodies, bony erosive changes are periarticular spurring seen. The soft tissues are normal. Left shoulder: The glenohumeral and AC joint space is maintained normal. No bony erosive changes, loose bodies are enthesophyte seen. No acute fracture or dislocation. XR/XR Shoulder Suraj min 2V IMPRESSION: Unremarkable bilateral shoulder exam. Electronically signed by: Ancelmo Akers MD 03/24/2025 11:48 AM EDT
[2025-03-24 10:42] LABS: MANUAL DIFF FLAG NO
[2025-03-24 11:00] LABS: Basophils Percent Auto 0.2 % (0-2); Eosinophils Percent Auto 0.4 % (0-4); Hematocrit 39.1 % (37.0-47.0); Hemoglobin 12.5 g/dl (12.0-16.0); Imm Gran Abs Auto 0.03 X10*3/uL (0.00-0.03); Imm Gran Pct Auto 0.3 % (0.0-0.4); Lymphocytes Absolute Auto 2.3 X10*3/uL (1.2-4.9); Lymphocytes Percent Auto 21.8 % (20-40); Mean Corpuscular Hemoglobin 29.9 pg (27.0-33.0); Mean Corpuscular Volume 93.5 fL (80.0-98.0); Mean Platelet Volume 9.5 fL (9.4-12.3); Monocytes Absolute Auto 0.5 X10*3/uL (0.1-1.2); Monocytes Percent Auto 4.9 % (2-11); Neutrophils Absolute Auto 7.6 x10*3/uL (2.0-8.3); Neutrophils Percent Auto 72.4 % (45-73); Platelet Count 356 X10*3/uL (160-400); Red Blood Count 4.18 X10*6/uL (4.20-5.50); Red Cell Distribution Width 14.3 % (11.0-16.0); White Blood Count 10.5 X10*3/uL (4.8-10.8)
[2025-03-24 11:34] LABS: Rheumatoid Factor < 13.0 IU/mL (<15.0)
[2025-03-24 11:37] LABS: Erythrocyte Sedimentation Rate 26 MM/HR (0-20)
[2025-03-24 11:45] LABS: Parathyroid Hormone Intact 69.7 pg/mL (8.7-77.1)
[2025-03-24 12:05] LABS: Alanine Aminotransferase 36 U/L (0-31); Albumin Level 4.1 g/dL (3.5-5.0); Alkaline Phosphatase 120 U/L (39-117); Anion Gap 11 (12-20); Aspartate Amino Transferase 28 U/L (5-31); Bilirubin Total 0.4 mg/dL (0.0-1.0); Blood Urea Nitrogen 15 mg/dL (9-16); C Reactive Protein 0.23 mg/dL (< or = 0.50); Calcium 9.4 mg/dL (8.4-10.2); Carbon Dioxide 29 mmol/L (22-29); Chloride 103 mmol/L (96-108); Estimated Glomerular Filt Rate > 60; Glucose Random 94 mg/dL (60-115); Potassium 3.7 mmol/L (3.3-5.1); Sodium 139 mmol/L (135-145); Total Protein 7.5 g/dL (6.5-8.0); Uric Acid 3.7 mg/dL (2.4-5.7)
[2025-03-28 11:53] LABS: Cyclic Citrullinated Peptide <16 UNITS
[2025-03-29 14:59] LABS: Vitamin D 25-OH, D2 <4 ng/mL; Vitamin D 25-OH, D3 35 ng/mL; Vitamin D 25-OH, Total 35 ng/mL (30-100)
== END 2025-03-24 10:18 | disposition home or self-care (01) ==
LOC: HO.XRAY 10:17
PROVIDERS: PCP Physician Assistant; Visit Provider Student in an Organized Health Care Education/Training Program
DX: M19.90 Unspecified osteoarthritis, unspecified site (principal)
CPT/HCPCS: 36415; 73030; 73110; 73130; 73562; 80053; 82306; 83735; 83970; 84550; 85025; 85652; 86140; 86200; 86431

== ENCOUNTER → 2025-03-24 10:41 | Outpatient (BNV) | payer OTHER, SELFPAY | PROVIDERS: PCP Physician Assistant; Visit Provider Radiology Diagnostic Radiology | DX: M19.90 Unspecified osteoarthritis, unspecified site (principal); M85.652 Other cyst of bone, left thigh | CPT/HCPCS: 73030; 73110; 73130; 73562 ==

== ENCOUNTER 2025-03-31 14:58 | Outpatient (AMB) | payer OTHER, SELFPAY ==
[2025-03-31 15:04] VITALS: BP 118/70; PULSE 81; O2SAT 98; BMI 21.8
--- NOTE | 2025-03-31 15:04 | A.OFFVIS_ITS ---
Vital Signs 03/31/25 15:04 Height 5 ft 2 in Weight 119 lb BMI 21.8 BP 118/70 Blood Pressure Location Lt brachial Position Sitting Pulse 81 Pulse Source Pulse Oximeter Pulse Oximetry (%) 98 Oxygen Delivery Method Room Air Intake Visit Reasons: Polyarthritis Intake Note: Patient presents for follow up on polyarthritis today. Allergies acetaminophen [Percocet] Allergy (Unknown, Verified 03/09/25 09:58) Unknown diazepam Allergy (Unknown, Verified 03/09/25 09:58) anxiety oxycodone Allergy (Unknown, Verified 03/09/25 09:58) unknown suvorexant [Belsomra] Allergy (Unknown, Verified 03/09/25 09:58) inadequate response trazodone Allergy (Unknown, Verified 03/09/25 09:58) unknown lisinopril Adverse Reaction (Intermediate, Verified 03/09/25 09:58) Cough tramadol Adverse Reaction (Unknown, Verified 03/09/25 09:58) abdominal pain HPI Comments Details: Patient is a 54-year-old female with asthma, anxiety/depression, hypertension, hyperlipidemia, and polyarticular osteoarthritis (knee and spine) he is here today for follow up Interval History: Patient last seen 03/09/2025 with me. At that time she was establishing care for the management of polyarticular osteoarthritis. She had monoarticular arthritis of the left. Fluid was drained and sent for analysis and she was given a steroid injection in the knee. The fluid analysis showed inflammatory aspirate without any crystals. Patient was sent for further workup and x-rays and she is here today now for follow up. Today, Patient is very happy she is doing so much better. She did have a reaction to the spray and that area is currently healing. But her knees no longer swollen a nd she is able to have more mobility in her knee and her shoulders. Rheumatologic History: Initial history: Patient states that she emig[place] to the [place] in [place]. Around that time she had a fall and subsequently had arthroscopy in bilateral knees. Since then she continues to have pain in her knees. Subsequently got right TKR 01/2023. Currently her left knee is swollen and painful. Also has pain in her neck and low back, as well as right shoulder. No known family history of autoimmune disease Denies rashes, photosensitivity, alopecia, oral/nasal ulcers, sicca symptoms, lymphadenopathy, chest pain/shortness of breath, foamy urine, lower extremity edema, muscle weakness, Raynaud's Also denies history of seizure, CVA, psychosis, history of kidney problems, hist ory of cytopenias, history of VTE including PE or DVTs Current Rheumatology Medication(s): Topical diclofenac 1% PFSH Medical History Urinary incontinence in female Cervical disc disease Knee osteoarthritis Fibromyalgia PTSD (post-traumatic stress disorder) YAMILETH (generalized anxiety disorder) Chronic knee pain Surgical History History of tubal ligation History of knee surgery Family History Mother Dementia Arthritis Mental health disorder Father Arthritis Heart disease Skin cancer Social History Housing: Apartment Alcohol intake: never Patient Tobacco Use Status: Former Tobacco user Tobacco use type: Cigarette Cigarettes Per Day: 0 e-Cigarette/Vaping Use: Never Used Substance Use Type: Marijuana service: No Current occupational status: disabled Cognitive needs: No Hearing needs: No Vision needs: No Female Reproductive History Menstrual Age of Menarche: 11 Date of menopause: 12/25/21 Review of Systems Const Details: Review of Systems Constitutional: Denies fever, chills, weight loss ENT: Denies vision changes, eye pain or eye redness, dental caries, dry mouth GI: Denies nausea, vomiting, diarrhea, abdominal pain, change in BM Pulm: Denies SOB, CLARK, hemoptysis, wheezing Cards: Denies chest pain, palpitations Skin: Denies Raynaud's, rash, nail changes, photosensitivity, [employer] 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 Well appearing and in no apparent painful distress HEENT Conjunctiva and sclera clear. ?Pupils equal round and reactive to light. ?No lymphadenopathy. ? CHEST/RESPIRATORY SYSTEM Normal respiratory effort and able to speak in complete sentences. ?Clear to auscultation bilaterally. ?No crackles, rales, rhonchi, wheezes heard. CARDIAC SYSTEM Regular rate and rhythm. ?S1 and S2 heard no murmurs. 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 No deformities noted. ?No synovitis noted to the MCPs, PIPs or DIPs. ?No tenderness to palpation of these joints. Wrists: ?Full range of motion at the wrists without pain. ?No tenderness to palpation or synovitis noted to the wrists. Elbows: Full range of motion without pain. No tenderness, weakness, swelling, increased warmth or erythema. Shoulders: Decreased active ROM on the right with obvious swelling of the subacromial bursa and TTP. Knees: ?Surgical scar over the right knee. Left knee improved. scab over the area of the injection consistent with a burn from the topical spray Ankles: Full range of motion. ?No tenderness, swelling, increased warmth or erythema.? Feet: ?Negative squeeze test. ?No tenderness to palpation or swelling of the MTPs. Tender points:?No tenderness to palpation of the bilateral trapezius, supraspinatus, greater trochanters, anterior costochondral junctions, bilateral gluteal areas, bilateral suboccipital muscle insertions SKIN Skin intact without rashes. Results Reviewed Results Reviewed: Laboratory Tests 03/24/25 10:40 WBC 10.5 RBC 4.18 L Hgb 12.5 Hct 39.1 Plt Count 356 ESR 26 H Sodium 139 Potassium 3.7 Chloride 103 Carbon Dioxide 29 BUN 15 Creatinine 0.65 AST 28 ALT 36 H C-Reactive Protein 0.23 25-OH Vitamin D Total 35 Laboratory Tests 03/09/25 09:42 Synovial Source KNEE Synovial WBC 19.670 Synovial RBC 0.002 Synovial Neutrophils 81 XR Bilateral Wrists 03/2025 FINDINGS: Left: There is normal in maintained radial ulnar carpal, intercarpal and carpal metacarpal joint space. There is a negative ulnar variance. No fracture, dislocation or lytic process seen. The scapholunate junction and the scaphoid bone are intact. The soft tissues are normal. Righ: There is negative ulnar variance. There is maintained radial ulnar carpal, intercarpal and carpometacarpal joint space. There is no fracture, dislocation or subluxation seen. The soft tissues are normal. IMPRESSION: Bilateral negative ulnar variance. No acute fracture or dislocation seen. The joint spaces are maintained normal. No abnormal soft tissue calcification or soft tissue swelling XR Bilateral shoulders 03/2025 FINDINGS: Right shoulder: Glenohumeral and AC joint space is maintained normal. No loose bodies, bony erosive changes are periarticular spurring seen. The soft tissues are normal. Left shoulder: The glenohumeral and AC joint space is maintained normal. No bony erosive changes, loose bodies are enthesophyte seen. No acute fracture or dislocation. IMPRESSION: Unremarkable bilateral shoulder exam. XR Bilateral Knees 03/2025 FINDINGS: The tricompartment joint spaces maintain normal. There is minimal spurring along the medial compartment. There is mild osteopenia and degenerative the bone marrow. There is minimal suprapatellar joint effusion. No acute fracture or dislocation seen. There is minimal subchondral cystic changes along left femoral condyle. There are no loose bodies. IMPRESSION: Mild degenerative changes medial compartment with minimal suprapatellar joint effusion and subchondral cystic changes along the lateral femoral condyle XR bilateral Hands 03/2025 FINDINGS: Left hand: There is a minimal loss of PIP and DIP joint spaces with small bony erosive changes DIP joint second and third digit no acute fracture or dislocation seen. There is no periarticular spurring or soft tissue calcification. The MCP and CMCP joints are normal Right hand: There is minimal loss of PIP and DIP joint space. There is mild bony erosive changes DIP joint third digit. Rest the digits show no erosions or periarticular spurring. The soft tissues are normal: IMPRESSION: Mild erosive changes DIP joint of both hands suggestive of early degenerative osteoarthritis. Assessment & Plan Assessment & Plan (1) Polyarticular osteoarthritis: Code(s): M15.9 - Polyosteoarthritis, unspecified Plan: #Polyarticular OA Patient is a 54 y.o. female with polyarticular osteoarthritis here today for follow up. I aspirated her knee the last visit and sent for analysis which revealed an inflammatory aspirate at 19,000 white blood cells. She was sent for additional workup out of concern for inflammatory arthritis such as RA or CPPD. Her workup did not reveal any obvious inflammatory arthropathy such as rheumatoid arthritis. It is possible that she may have a component of CPPD but at this time given her lack of recurrent monoarticular arthritis we will just continue to monitor. Plan - Topical diclofenac 1% left knee. - RTC August 2025 Plan I spent 25 minutes reviewing the record and labs, taking a history, examining the patient, discussing the treatment plan, ordering diagnostic work up and documenting in the medical record Coding Level of Care Code Est Pt Level 3 (57772) Diagnoses Polyarticular osteoarthritis M15.9
== END 2025-03-31 15:39 | disposition home or self-care (01) ==
LOC: HO.RHE 14:59
PROVIDERS: PCP Physician Assistant; Visit Provider Student in an Organized Health Care Education/Training Program
DX: M15.9 Polyosteoarthritis, unspecified (principal)
CPT/HCPCS: 99213

== ENCOUNTER → 2025-03-31 14:58 | Outpatient (BNVA) | payer OTHER, SELFPAY | PROVIDERS: PCP Physician Assistant; Visit Provider Student in an Organized Health Care Education/Training Program | DX: M15.9 Polyosteoarthritis, unspecified (principal) | CPT/HCPCS: 99212 ==

== ENCOUNTER 2025-04-18 14:15 | Outpatient (AMB) | payer OTHER, SELFPAY ==
[2025-04-18 14:18] VITALS: BP 108/80; PULSE 125; TEMP 36.3; O2SAT 97; BMI 21.1
--- NOTE | 2025-04-18 14:18 | MHC.PC.OV ---
Vital Signs 04/18/25 14:18 Height 5 ft 2 in Weight 115 lb 8 oz BMI 21.1 BP 108/80 Blood Pressure Location Lt brachial Position Sitting Pulse 125 H Pulse Source Pulse Oximeter Temp 97.3 F Temp Source Temporal Artery Scan Pulse Oximetry (%) 97 Oxygen Delivery Method Room Air Intake Visit Reasons: f/u HTN/ hld Personal Care Attendant Required: No Accompanied by: Self / Same As Patient Allergies acetaminophen [Percocet] Allergy (Unknown, Verified 04/18/25 14:24) Unknown diazepam Allergy (Unknown, Verified 04/18/25 14:24) anxiety oxycodone Allergy (Unknown, Verified 04/18/25 14:24) unknown suvorexant [Belsomra] Allergy (Unknown, Verified 04/18/25 14:24) inadequate response trazodone Allergy (Unknown, Verified 04/18/25 14:24) unknown lisinopril Adverse Reaction (Intermediate, Verified 04/18/25 14:24) Cough tramadol Adverse Reaction (Unknown, Verified 04/18/25 14:24) abdominal pain Medication List - Last Reconciled 04/18/25 by Mahesh Dillon PA-C albuterol sulfate 90 mcg/actuation 2 puffs inhalation Q4H PRN 30 days alprazolam 1 mg PO BID PRN baclofen 10 mg PO BID PRN blood pressure test kit-medium As directed cane As directed cholecalciferol (vitamin D3) 50 mcg PO DAILY 90 days citalopram 40 mg PO QAM diclofenac sodium 1% (Arthritis Pain (diclofenac)) 4 grams topical QID gabapentin 100 mg PO TID 30 days hydrochlorothiazide 12.5 mg PO DAILY lidocaine 5% 1 patch topical DAILY 30 days losartan 25 mg PO DAILY 90 days mirtazapine 30 mg PO BEDTIME oxybutynin chloride ER 5 mg PO DAILY 90 days quetiapine 100 mg PO BID simvastatin 10 mg PO DAILY 90 days valacyclovir (Valtrex) 1,000 mg PO DAILY 14 days Tobacco use date assessed: 04/18/25 Dental Screening Dental Screen Date: 04/18/25 Did you have a dental visit in the last 12 months?: Yes Did you have a dental problem in the last 6 months where you did not have access to dental care?: No Was dental information given to patient?: Patient has dentist HPI f/u HTN/ hld HPI Details Patient is a 54-year-old female here today a follow-up visit.? Patient has a past medical history significant for fibromyalgia, osteoarthritis of the right knee, cervical discs disease, borderline high cholesterol, major depressive disorder anxiety. Polyarthralgia: Has been following [place] [facility]. Had underwent a left knee and right shoulder joint aspiration which has significantly reduced her joint pains and those joints. She has had baseline rheumatology testing in the past cleaning NAYE, rheumatoid factor anti CCP which were negative. She continues to ambulate with a cane She reports gabapentin 100 mg has helped her with her overall pain. She becomes very emotional when talking about her pain issues in her lack of ability to do her activities of daily living. .. Major depressive disorder:? Continues to follow a psychiatrist and mental health therapist who manages her mental health medications.? She continues to suffer from a depressive disorder and mostly stays in her home.? She relays that she is unable to work and concentrate on work tasks due to her depression and anxiety ?2. She recently received a puppy dog from her daughter and is asking for a letter to give to her landlord explaining that this is an emotional support animal. .. . Borderline high cholesterol:? Most recent lipid panel showing borderline high total cholesterol.? She working on lifestyle to reduce high cholesterol foods in her diet.? Will recheck lipid panel fasting before next visit. .. Spastic bladder : She does report she continues to suffer with urinary urgency and incontinence. Had been placed on oxybutynin 5 mg extended release which originally was helpful though its effectiveness has more now off. Will increase her dose to 10 mg extended release She will call her speaker wirer to discuss her spastic bladder syndrome. Of note has had 3 full-term pregnancies and may have pelvic floor dysfunction. We did discuss the possibility of trying pelvic floor therapy. Laboratory Tests 11/29/21 11/27/22 06/17/24 09:48 10:45 10:35 RBC Hgb ESR 71 H 82 H Creatinine 0.76 ALT Cholesterol 236 243 225 H LDL Cholesterol, C alc 166 H 25-OH Vitamin D To jensen PTH Intact Synovial WBC Rheumatoid Factor Cycl Citrul Peptid e IgG <16 03/09/25 03/24/25 09:42 10:40 RBC 4.18 L Hgb 12.5 ESR Creatinine 0.65 ALT 36 H Cholesterol LDL Cholesterol, C alc 25-OH Vitamin D To jensen 35 PTH Intact 69.7 Synovial WBC 19.670 Rheumatoid Factor < 13.0 Cycl Citrul Peptid e IgG <16 PFSH Medical History Urinary incontinence in female Cervical disc disease Knee osteoarthritis Fibromyalgia PTSD (post-traumatic stress disorder) YAMILETH (generalized anxiety disorder) Chronic knee pain Surgical History History of tubal ligation History of knee surgery Family History Mother Dementia Arthritis Mental health disorder Father Arthritis Heart disease Skin cancer Social History Housing: Apartment Alcohol intake: never Patient Tobacco Use Status: Former Tobacco user Tobacco use type: Cigarette Cigarettes Per Day: 0 e-Cigarette/Vaping Use: Never Used Substance Use Type: Marijuana service: No Current occupational status: disabled Cognitive needs: No Hearing needs: No Vision needs: No Female Reproductive History Menstrual Age of Menarche: 11 Date of menopause: 12/25/21 Questionnaire PHQ-9 Over the last 2 weeks, how often have you been bothered by any of the following problems? 1. Little interest or pleasure in doing things: several days 2. Feeling down, depressed, or hopeless: several days 3. Trouble falling or staying asleep, or sleeping too much: several days 4. Feeling tired or having little energy: several days 5. Poor appetite or overeating: several days 6. Feeling bad about yourself - or that you are a failure or have let yourself or your family down: not at all 7. Trouble concentrating on things, such as reading the newspaper or watching television: several days 8. Moving or speaking so slowly that other people could have noticed. Or the opposite - being so fidgety or restless that you have been moving around a lot more than usual: not at all 9. Thoughts that you would be better off or of hurting yourself in some way: not at all Total score: 6 Depression Screening Interpretation: Positive Depression Screening Follow-up: Existing condition and In treatment Depression Screening Done: Yes 94703 - PHQ-9 Billing: Yes Source: Developed by Drs. Dawn Peña Kurt Kroenke and colleagues, with an educational prema from [employer]. Thrive Questionnaire Date Thrive assessed: 04/18/25 I am a: Patient What is your living situation today?: I have a steady place to live Within the past 12 months, did the food you bought not last and you didn't have the money to get more?: I choose not to answer this question Within the past 12 months, did you worry whether your food would run out before you got money to buy more?: I choose not to answer this question Do you have trouble paying for medicines?: No Do you have trouble getting transportation to medical appointments?: No Do you have trouble paying your heating and electricity bill?: No Do you have trouble taking care of your child, family member or friend?: No Do you have trouble with day-to-day activities such as bathing, preparing meals, shopping, managing finances, etc.?: No Are you currently unemployed and looking for a job?: No Are you interested in more education?: No Please select the resources that you would like help with: None Currently or been in a relationship where the following occur: I choose not to answer THRIVE Score: 0 AUDIT C Alcohol Use Questionnaire (AUDIT-C) 1. How often do you have a drink containing alcohol?: Never 3. How often do you have six or more drinks on one occasion?: Never Total Score: 0 YAMILETH-7 AMB Questionnaire YAMILETH-7 Date YAMILETH - 7 assessed: 04/18/25 Feeling nervous, anxious, or on edge: 1 = Several days Not being able to stop or control worryin = Several days Worrying too much about different things: 1 = Several days Trouble relaxin = More than half the days Being so restless that it is hard to sit still: 1 = Several days Becoming easily annoyed or irritable: 1 = Several days Feeling afraid as if something awful might happen: 1 = Several days Total YAMILETH-7 score (0-4 normal; 5-9 mild; 10-14 moderate; 15-21 severe): 8 Source: Developed by Dawn March, Demetrius Rosales and colleagues, with an educational prema from [employer]. YAMILETH-7 Assessment Billing YAMILETH-7 Assessment Tool: YAMILETH-7 Assessment 12484 Review of Systems Const Denies headache(s) Eyes Denies loss of vision ENT Denies vertigo, Denies dizziness, Denies headache(s) and Denies sore throat Card Denies chest pain, Denies leg edema and Denies lightheadedness Resp Denies cough, Denies hemoptysis and Denies wheezing GI Denies abdominal pain, Denies melena, Denies constipation, Denies diarrhea and Denies vomiting Denies urinary frequency, Denies dysuria and Denies urinary urgency Musc Denies arthralgias, Denies joint swelling, Denies numbness and Denies tingling Neuro Denies Abnormal speech present, Denies behavioral changes, Denies vertigo, Denies dizziness, Denies headache(s), Denies loss of vision, Denies memory loss, Denies numbness and Denies tingling Psych Denies anxiety, Denies behavioral changes, Denies depression, Denies memory loss and Denies panic attacks Willie/Lymph Denies easy bleeding and Denies easy bruising Aller/Immun Denies wheezing Physical exam (Primary Care) Vital Signs: Last Vital Signs Temp 97.3 F 04/18/25 14:18 Pulse 125 H 04/18/25 14:18 BP 108/80 04/18/25 14:18 Pulse Ox 97 04/18/25 14:18 Oxygen Delivery Method Room Air 04/18/25 14:18 BMI result Body Mass Index 21.1 Tobacco/Smoking Status: Tobacco use Status Tobacco use date assessed 04/18/25 04/18/25 14:25 Patient Tobacco Use Status Former Tobacco user 04/18/25 14:19 Tobacco use type Cigarette 04/18/25 14:19 e-Cigarette/Vaping Use Never Used 04/18/25 14:19 PHQ-9: PHQ-9 Score PHQ-9: Total score 6 04/18/25 14:36 Depression Screening Interpretation: Positive Depression Screening Follow-up: Existing condition and In treatment Thrive Assessment: Date of Thrive Assessment Date Thrive assessed 04/18/25 04/18/25 14:19 Currently or been in a relationship where the following occur: I choose not to answer Const General: healthy appearing, no acute distress, alert and awake Nutritional Appearance: well nourished Orientation/consciousness: oriented to person, oriented to place and oriented to time HENMT Ears: TM's normal bilaterally General nose exam: Normal nasal mucous membranes and turbinates present Eyes Conjunctivae: conjunctivae normal Sclerae: sclerae normal Pupils: Equal, round and reactive pupils present Neck Neck: Yes no lymphadenopathy and Yes no JVD Thyroid: Thyroid normal Carotids: no bruits Resp Effort & Inspection: normal respiratory effort and not tachypneic Auscultation: no crackles, no rales, no rhonchi and no wheezes Cardio Rate: regular rate Rhythm: regular rhythm Heart sounds: no murmurs and normal S1 and S2 GI Palpation (GI): Soft to palpation, nontender, no hepatomegaly and no splenomegaly Auscultation: normal bowel sounds Skin General skin exam: no rashes or lesions noted and dry skin Neuro General: oriented to person, oriented to place and oriented to time Cranial nerves: Yes Equal, round and reactive pupils present Speech: No Abnormal speech present Gait exam (Neuro): Normal gait present Motor exam (neuro): no tremor noted Extrem Right upper extremity: full ROM Left upper extremity: full ROM Right lower extremity: full ROM; no edema Left lower extremity: full ROM; no edema Psych Mental Status: mental status grossly normal Speech and movement: Normal speech and movement present Affect: normal affect Attitude: cooperative Thought process: Normal thought process present Coding Level of Care Code Est Pt Level 4 (74706) Diagnoses Mixed hyperlipidemia E78.2 Hyperlipidemia type: mixed hyperlipidemia Primary osteoarthritis of both knees M17.0 Laterality: bilateral Osteoarthritis type: primary Primary hypertension I10 Hypertension type: primary hypertension Fibromyalgia M79.7 MDD (major depressive disorder), recurrent episode, moderate F33.1 YAMILETH (generalized anxiety disorder) F41.1 Additional Codes YAMILETH-7 Assessment Billing - YAMILETH-7 Assessment Tool: YAMILETH-7 Assessment [id number] ([id number]) PHQ-9 - 00026 - PHQ-9 Billing: Yes ([id number]) Assessment & Plan Assessment & Plan (1) HLD (hyperlipidemia): Code(s): E78.5 - Hyperlipidemia, unspecified Category: Medical Qualifiers: Hyperlipidemia type: mixed hyperlipidemia Qualified Code(s): E78.2 - Mixed hyperlipidemia Plan: Patient continues on low-dose statin therapy with good effect. Most recent lipid panel showing good control over total cholesterol and LDL. (2) Knee osteoarthritis: Code(s): M17.10 - Unilateral primary osteoarthritis, unspecified knee Category: Medical Qualifiers: Laterality: bilateral Osteoarthritis type: primary Qualified Code(s): M17.0 - Bilateral primary osteoarthritis of knee Plan: Patient has pretty significant bilateral knee osteoarthritis. Has had a left knee replacement. She has followed up with Rheumatology here in [place] and had aspiration of her left knee and does report a lot of pain relief. (3) HTN (hypertension): Code(s): I10 - Essential (primary) hypertension Category: Medical Qualifiers: Hypertension type: primary hypertension Qualified Code(s): I10 - Essential (primary) hypertension Plan: Patient's blood pressure acceptable today in office. Will continue her current dose of antihypertensive medication with goal blood pressure to remain below 140/90. (4) Fibromyalgia: Code(s): M79.7 - Fibromyalgia Category: Medical Plan: Patient does seem to have an element of fibromyalgia. She does take gabapentin 100 mg t.i.d. which has helped her pain. (5) MDD (major depressive disorder), recurrent episode, moderate: Code(s): F33.1 - Major depressive disorder, recurrent, moderate Category: Medical Plan: Patient's PHQ-9 score positive for major depressive disorder which has been existing condition for her. She continues with medication and follow up with her psychiatrist. As per HPI patient recently received a dogs that she is using his an emotional support animal. Given her letter just to find a need to have her dog live with her in her apartment to help her mental health (6) YAMILETH (generalized anxiety disorder): Code(s): F41.1 - Generalized anxiety disorder Category: Medical Plan: Patient's YAMILETH-7 score positive for anxiety which has been existing condition for her. Again follows up with her mental health therapist and a psychiatrist. Orders: Orders Lipid Panel 04/18/25 E78.2 - Mixed hyperlipidemia Comprehensive [place]. Panel Fast 04/18/25 E78.2 - Mixed hyperlipidemia Complete Blood Count no Diff 04/18/25 E78.2 - Mixed hyperlipidemia Medications: New oxybutynin chloride ER 10 mg PO DAILY 30 tabs 1RF 30 days N32.89 - Other specified disorders of bladder Refilled simvastatin 10 mg PO DAILY 90 tabs 1RF 90 days E78.5 - Hyperlipidemia, unspecified gabapentin 100 mg PO TID 90 caps 3RF 30 days M17.0 - Bilateral primary osteoarthritis of knee cholecalciferol (vitamin D3) 50 mcg PO DAILY 90 caps 1RF 90 days E55.9 - Vitamin D deficiency, unspecified, E78.9 - Disorder of lipoprotein metabolism, unspecified lidocaine 5% leave on most painful area for up to 12 hrs 1 patch topical DAILY 30 ea 3RF 30 days M17.0 - Bilateral primary osteoarthritis of knee Discontinued oxybutynin chloride ER Discontinued Reason: Doctor's Order 5 mg PO DAILY 90 days 90 tabs 1RF N32.89 - Other specified disorders of bladder Patient Instructions: Goal: LDL to be below 130 Barriers: Adherence to physical activity and healthy eating habits
== END 2025-04-18 14:54 | disposition home or self-care (01) ==
LOC: HO.HMCH 14:16
PROVIDERS: PCP Physician Assistant; Visit Provider Physician Assistant
DX: E78.2 Mixed hyperlipidemia (principal); F33.1 Major depressive disorder, recurrent, moderate; M17.0 Bilateral primary osteoarthritis of knee; I10 Essential (primary) hypertension; M79.7 Fibromyalgia; F41.1 Generalized anxiety disorder

== ENCOUNTER → 2025-04-18 14:15 | Outpatient (BNVA) | payer OTHER, SELFPAY | PROVIDERS: PCP Physician Assistant; Visit Provider Physician Assistant | DX: I10 Essential (primary) hypertension (principal); M79.7 Fibromyalgia; N32.89 Other specified disorders of bladder; E78.2 Mixed hyperlipidemia; M17.0 Bilateral primary osteoarthritis of knee; F33.1 Major depressive disorder, recurrent, moderate; F41.1 Generalized anxiety disorder | CPT/HCPCS: 96127; 99212 ==

== ENCOUNTER 2025-09-06 15:05 | Outpatient (AMB) | payer OTHER, SELFPAY ==
--- NOTE | 2025-09-06 15:06 | A.OFFVIS_ITS ---
Vital Signs 09/06/25 15:07 Height 5 ft 2 in Weight 120 lb 9.486 oz BMI 22.1 BP 100/70 Blood Pressure Location Lt brachial Position Sitting Pulse 97 Pulse Source Pulse Oximeter Pulse Oximetry (%) 99 Oxygen Delivery Method Room Air Intake Visit Reasons: Polyarthritis Intake Note: Patient presents for polyarthritis today. Accompanied by: Self / Same As Patient Allergies acetaminophen (Percocet) Allergy (Unknown, Verified 09/06/25 15:12) Unknown diazepam Allergy (Unknown, Verified 09/06/25 15:12) anxiety oxycodone Allergy (Unknown, Verified 09/06/25 15:12) unknown suvorexant (Belsomra) Allergy (Unknown, Verified 09/06/25 15:12) inadequate response trazodone Allergy (Unknown, Verified 09/06/25 15:12) unknown lisinopril Adverse Reaction (Intermediate, Verified 09/06/25 15:12) Cough tramadol Adverse Reaction (Unknown, Verified 09/06/25 15:12) abdominal pain Medication List - Last Reconciled 09/06/25 by Elle Bhatia MD albuterol sulfate 90 mcg/actuation 2 puffs inhalation Q4H PRN 30 days alprazolam 1 mg PO BID PRN baclofen 10 mg PO BID PRN blood pressure test kit-medium As directed cane As directed cholecalciferol (vitamin D3) 50 mcg PO DAILY 90 days citalopram 40 mg PO QAM diclofenac sodium 1% (Arthritis Pain (diclofenac)) 4 grams topical QID gabapentin 100 mg PO TID 30 days hydrochlorothiazide 12.5 mg PO DAILY lidocaine 5% 1 patch topical DAILY 30 days losartan 25 mg PO DAILY 90 days mirtazapine 30 mg PO BEDTIME oxybutynin chloride ER 10 mg PO DAILY 30 days quetiapine 100 mg PO BID simvastatin 10 mg PO DAILY 90 days valacyclovir (Valtrex) 1,000 mg PO DAILY 14 days HPI Comments Details: Patient is a 55-year-old female with asthma, anxiety/depression, hypertension, hyperlipidemia, and polyarticular osteoarthritis (knee and spine) he is here today for follow up Interval History: Patient last seen 03/31/25 with me, - On Topical diclofenac 1% - Patient is very happy she is doing so much better after steroid injection. She did have a reaction to the spray and that area is currently healing. - But her knees no longer swollen and she is able to have more mobility in her knee and her shoulders Today - On Topical diclofenac 1% - Patient had mechanical fall this AM, falling forward hitting her head - No LOC - Left knee remains without swelling. Gets some pain from now and again - Continues to have neck pain Rheumatologic History: Initial history: Patient states that she emig[place] to the [place] in [place]. Around that time she had a fall and subsequently had arthroscopy in bilateral knees. Since then she continues to have pain in her knees. Subsequently got right TKR 01/2023. Currently her left knee is swollen and painful. Also has pain in her neck and low back, as well as right shoulder. No known family history of autoimmune disease Denies rashes, photosensitivity, alopecia, oral/nasal ulcers, sicca symptoms, lymphadenopathy, chest pain/shortness of breath, foamy urine, lower extremity edema, muscle weakness, Raynaud's Also denies history of seizure, CVA, psychosis, history of kidney problems, history of cytopenias, history of VTE including PE or DVTs Current Rheumatology Medication(s): Topical diclofenac 1% PFSH Medical History Urinary incontinence in female Cervical disc disease Knee osteoarthritis Fibromyalgia PTSD (post-traumatic stress disorder) YAMILETH (generalized anxiety disorder) Chronic knee pain Surgical History History of tubal ligation History of knee surgery Family History Mother Dementia Arthritis Mental health disorder Father Arthritis Heart disease Skin cancer Social History Housing: Apartment Alcohol intake: never Patient Tobacco Use Status: Former Tobacco user Tobacco use type: Cigarette Cigarettes Per Day: 0 e-Cigarette/Vaping Use: Never Used Substance Use Type: Marijuana service: No Current occupational status: disabled Cognitive needs: No Hearing needs: No Vision needs: No Female Reproductive History Menstrual Age of Menarche: 11 Date of menopause: 12/25/21 Review of Systems Const Details: Review of Systems Constitutional: Denies fever, chills, weight loss ENT: Denies vision changes, eye pain or eye redness, dental caries, dry mouth GI: Denies nausea, vomiting, diarrhea, abdominal pain, change in BM Pulm: Denies SOB, CLARK, hemoptysis, wheezing Cards: Denies chest pain, palpitations Skin: Denies Raynaud's, rash, nail changes, photosensitivity, GEOLOGICAL AIDE: Denies headaches, weakness, paresthesias, recurrent falls MSK: as per HPI All other systems reviewed and are unremarkable except noted above Physical Exam Exam Exam: Vital signs reviewed Physical Examination CONSTITUITIONAL Patient alert and cooperative. Well appearing and in no apparent painful distress MSK Hands * Right Hand: Able to make a fist. No swelling or tenderness to palpation of the MCPs, PIPs or DIPs. * Left Hand: Able to make a fist. No swelling or tenderness to palpation of the MCPs, PIPs or DIPs. * Herbedens nodes noted bilaterally Wrists * Right Wrist: Full ROM to flexion and extension. No swelling or TTP * Left Wrist: Full ROM to flexion and extension. No swelling or TTP Elbows * Right Elbow: Full ROM. No swelling or TTP. No TTP of the medial epicondyle. No TTP of the lateral epicondyle * Left Elbow: Full ROM. No swelling or TTP. No TTP of the medial epicondyle. No TTP of the lateral epicondyle Shoulders * Right shoulder: Full ROM. No swelling noted. No TTP of the AC joint. No TTP of the subacromial bursa. No TTP of the posterior shoulder * Left shoulder: Full ROM. No swelling noted. No TTP of the AC joint. No TTP of the subacromial bursa. No TTP of the posterior shoulder Knees * Right knee: Surgical scar noted. Mild swelling . No TTP of the knee joint line. No TTP of pes anserine bursa * Left knee: No swelling noted. No TTP of the knee joint line. No TTP of pes anserine bursa. Ankles * Right ankle: Good ankle dorsiflexion and plantar flexion. No swelling. No TTP of the ankle joint * Left ankle: Good ankle dorsiflexion and plantar flexion. No swelling. No TTP of the ankle joint Feet * Right foot: Negative squeeze test * Left foot: Negative squeeze test Tender points? * No tenderness to palpation of the bilateral trapezius, supraspinatus, anterior costochondral junctions, bilateral suboccipital muscle insertions SKIN No rashes Vital Signs: Last Vital Signs Pulse 97 10/15/25 15:07 BP 100/70 09/06/25 15:07 Pulse Ox 99 09/06/25 15:07 Oxygen Delivery Method Room Air 09/06/25 15:07 BMI result Body Mass Index 22.1 Results Reviewed Results Reviewed: Laboratory Tests 03/24/25 10:40 WBC 10.5 RBC 4.18 L Hgb 12.5 Hct 39.1 Plt Count 356 ESR 26 H Sodium 139 Potassium 3.7 Chloride 103 Carbon Dioxide 29 BUN 15 Creatinine 0.65 AST 28 ALT 36 H C-Reactive Protein 0.23 25-OH Vitamin D Total 35 Laboratory Tests 03/09/25 09:42 Synovial Source KNEE Synovial WBC 19.670 Synovial RBC 0.002 Synovial Neutrophils 81 XR Bilateral Wrists 03/2025 FINDINGS: Left: There is normal in maintained radial ulnar carpal, intercarpal and carpal metacarpal joint space. There is a negative ulnar variance. No fracture, dislocation or lytic process seen. The scapholunate junction and the scaphoid bone are intact. The soft tissues are normal. Righ: There is negative ulnar variance. There is maintained radial ulnar carpal, intercarpal and carpometacarpal joint space. There is no fracture, dislocation or subluxation seen. The soft tissues are normal. IMPRESSION: Bilateral negative ulnar variance. No acute fracture or dislocation seen. The joint spaces are maintained normal. No abnormal soft tissue calcification or soft tissue swelling XR Bilateral shoulders 03/2025 FINDINGS: Right shoulder: Glenohumeral and AC joint space is maintained normal. No loose bodies, bony erosive changes are periarticular spurring seen. The soft tissues are normal. Left shoulder: The glenohumeral and AC joint space is maintained normal. No bony erosive changes, loose bodies are enthesophyte seen. No acute fracture or dislocation. IMPRESSION: Unremarkable bilateral shoulder exam. XR Bilateral Knees 03/2025 FINDINGS: The tricompartment joint spaces maintain normal. There is minimal spurring along the medial compartment. There is mild osteopenia and degenerative the bone marrow. There is minimal suprapatellar joint effusion. No acute fracture or dislocation seen. There is minimal subchondral cystic changes along left femoral condyle. There are no loose bodies. IMPRESSION: Mild degenerative changes medial compartment with minimal suprapatellar joint effusion and subchondral cystic changes along the lateral femoral condyle XR bilateral Hands 03/2025 FINDINGS: Left hand: There is a minimal loss of PIP and DIP joint spaces with small bony erosive changes DIP joint second and third digit no acute fracture or dislocation seen. There is no periarticular spurring or soft tissue calcification. The MCP and CMCP joints are normal Right hand: There is minimal loss of PIP and DIP joint space. There is mild bony erosive changes DIP joint third digit. Rest the digits show no erosions or periarticular spurring. The soft tissues are normal: IMPRESSION: Mild erosive changes DIP joint of both hands suggestive of early degenerative osteoarthritis. Assessment & Plan Assessment & Plan (1) Polyarticular osteoarthritis: Code(s): M15.9 - Polyosteoarthritis, unspecified Plan: #Polyarticular OA Patient is a 55 y.o. female with polyarticular osteoarthritis here today for follow up. I aspirated her knee 03/09/25 and sent for analysis which revealed an inflammatory aspirate at 19,000 white blood cells. She was sent for additional workup out of concern for inflammatory arthritis such as RA or CPPD. Her workup did not reveal any obvious inflammatory arthropathy such as rheumatoid arthritis or low magnesium consistent with CPPD. It is possible that she may have a component of CPPD but at this time given her lack of recurrent monoarticular arthritis we will just continue to monitor. Plan - Topical diclofenac 1% left knee. - Cervical collar as requested for neck support - RTC 6 months Plan I spent 25 minutes reviewing the record and labs, taking a history, examining the patient, discussing the treatment plan, ordering diagnostic work up and documenting in the medical record Medications: New [Soft Foam Cervical Collar] As directed 1 ea 0RF M54.2 - Cervicalgia Coding Level of Care Code Est Pt Level 3 (36970) Complex EM visit Add On G2211 Diagnoses Polyarticular osteoarthritis M15.9
[2025-09-06 15:07] VITALS: BP 100/70; PULSE 97; O2SAT 99; BMI 22.1
== END 2025-09-06 15:42 | disposition home or self-care (01) ==
LOC: HO.RHES 15:06
PROVIDERS: PCP Physician Assistant; Visit Provider Student in an Organized Health Care Education/Training Program
DX: M15.9 Polyosteoarthritis, unspecified (principal)
CPT/HCPCS: 99213

== ENCOUNTER → 2025-09-06 15:05 | Outpatient (BNVA) | payer OTHER, SELFPAY | PROVIDERS: PCP Physician Assistant; Visit Provider Student in an Organized Health Care Education/Training Program | DX: M15.9 Polyosteoarthritis, unspecified (principal) | CPT/HCPCS: 99212 ==

== ENCOUNTER 2025-10-24 13:14 | Outpatient (AMB) | payer OTHER, SELFPAY ==
--- NOTE | 2025-10-24 13:17 | MHC.PC.OV ---
Vital Signs 10/24/25 13:18 Height 5 ft 2 in Weight 117 lb 6 oz BMI 21.5 BP 100/62 Blood Pressure Location Lt brachial Position Sitting Pulse 97 Pulse Source Pulse Oximeter Temp 97.5 F Temp Source Temporal Artery Scan Pulse Oximetry (%) 97 Oxygen Delivery Method Room Air Intake Visit Reasons: Annual Exam Intake Note: Patient is here today for a physical. 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 Parts Driver: Not Required per policy Accompanied by: Self / Same As Patient Allergies acetaminophen (Percocet) Allergy (Unknown, Verified 10/24/25 13:28) Unknown diazepam Allergy (Unknown, Verified 10/24/25 13:28) anxiety oxycodone Allergy (Unknown, Verified 10/24/25 13:28) unknown suvorexant (Belsomra) Allergy (Unknown, Verified 10/24/25 13:28) inadequate response trazodone Allergy (Unknown, Verified 10/24/25 13:28) unknown lisinopril Adverse Reaction (Intermediate, Verified 10/24/25 13:28) Cough tramadol Adverse Reaction (Unknown, Verified 10/24/25 13:28) abdominal pain Medication List - Last Reconciled 10/24/25 by Mahesh Dillon PA-C albuterol sulfate 90 mcg/actuation 2 puffs inhalation Q4H PRN 30 days alprazolam 1 mg PO BID PRN baclofen 10 mg PO BID PRN blood pressure test kit-medium As directed cane As directed cholecalciferol (vitamin D3) 50 mcg PO DAILY 90 days citalopram 40 mg PO QAM diclofenac sodium 1% (Arthritis Pain (diclofenac)) 4 grams topical QID gabapentin 100 mg PO TID 30 days hydrochlorothiazide 12.5 mg PO DAILY lidocaine 5% 1 patch topical DAILY 30 days losartan 25 mg PO DAILY 90 days mirtazapine 30 mg PO BEDTIME oxybutynin chloride ER 10 mg PO DAILY 30 days quetiapine 100 mg PO BID simvastatin 10 mg PO DAILY 90 days [Soft Foam Cervical Collar As directed] valacyclovir (Valtrex) 1,000 mg PO DAILY 14 days Tobacco use date assessed: 10/24/25 Dental Screening Dental Screen Date: 04/18/25 HPI Annual Exam HPI Details Patient is a 55-year-old female here today a annual physical. Patient has a past medical history significant for fibromyalgia, osteoarthritis of the right knee, cervical discs disease, hypertension, borderline high cholesterol, major depressive disorder anxiety. --Concern----> The patient reports two recent falls. Noted fairly low blood pressure today in office at 100/60. The patient is currently prescribed two blood pressure medications, hydrochlorothiazide 12.5 mg and losartan 25 mg. Polyarthralgia/ fibromyalgia: Has been following [place] rheumatology. Had underwent a left knee and right shoulder joint aspiration which has significantly reduced her joint pains and those joints. She has had baseline rheumatology testing in the past cleaning NAYE, rheumatoid factor anti CCP which were negative. She continues to ambulate with a cane She reports gabapentin 100 mg has helped her with her overall pain. She becomes very emotional when talking about her pain issues in her lack of ability to do her activities of daily living. --> The patient reports requiring assistance with activities of daily living, specifically laundry and groceries, due to arthritis. An application for [employer] services through [employer] was denied because the patient did not meet the eligibility requirement of needing physical assistance with two or more ADLs. The patient has a history of cervical disc disease, osteoarthritis, fibromyalgia, and mental health disorders. .. Major depressive disorder:? Continues to follow a psychiatrist and mental health therapist who manages her mental health medications.? She continues to suffer from a depressive disorder and mostly stays in her home.? She relays that she is unable to work and concentrate on work tasks due to her depression and anxiety ?2. She recently received a puppy dog from her daughter and is asking for a letter to give to her landlord explaining that this is an emotional support animal. .. . Borderline high cholesterol:? Most recent lipid panel showing borderline high total cholesterol.? She working on lifestyle to reduce high cholesterol foods in her diet.? Will recheck lipid panel fasting before next visit. .. Spastic bladder : Patient continues on oxybutynin 10 mg daily though still has episodes of urinary incontinence particularly when sleeping. The patient reports urinary issues, including a feeling of abdominal bloating and pressure with urination, as well as occasional urinary incontinence, sometimes occurring while asleep. Mammogram: has upcoming appointment for mammogram . Colon cancer screening: Cologuard done in October of 2023 - neg- repeat 3 years . 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 Vaccines: Up-to-date with pneumonia vaccine and shingles vaccine. Declines flu vaccine and COVID vaccines [facility] Medical History Urinary incontinence in female Cervical disc disease Knee osteoarthritis Fibromyalgia PTSD (post-traumatic stress disorder) YAMILETH (generalized anxiety disorder) Chronic knee pain Surgical History History of tubal ligation History of knee surgery Family History Mother Dementia Arthritis Mental health disorder Father Arthritis Heart disease Skin cancer Social History Housing: Apartment Alcohol intake: never Patient Tobacco Use Status: Former Tobacco user Tobacco use type: Cigarette Cigarettes Per Day: 0 e-Cigarette/Vaping Use: Never Used Second Hand Smoke Exposure: Yes Substance Use Type: Marijuana service: No Current occupational status: disabled Cognitive needs: No Hearing needs: No Vision needs: No Female Reproductive History Menstrual Age of Menarche: 11 Date of menopause: 12/25/21 Questionnaire Thrive Questionnaire Date Thrive assessed: 04/18/25 I am a: Patient What is your living situation today?: I have a steady place to live Within the past 12 months, did the food you bought not last and you didn't have the money to get more?: I choose not to answer this question Within the past 12 months, did you worry whether your food would run out before you got money to buy more?: I choose not to answer this question Do you have trouble paying for medicines?: No Do you have trouble getting transportation to medical appointments?: No Do you have trouble paying your heating and electricity bill?: No Do you have trouble taking care of your child, family member or friend?: No Do you have trouble with day-to-day activities such as bathing, preparing meals, shopping, managing finances, etc.?: No Are you currently unemployed and looking for a job?: No Are you interested in more education?: No Please select the resources that you would like help with: None Currently or been in a relationship where the following occur: I choose not to answer THRIVE Score: 0 AUDIT C Alcohol Use Questionnaire (AUDIT-C) 2. How many drinks containing alcohol do you have on a typical day when you are drinking?: 1 or 2 3. How often do you have six or more drinks on one occasion?: Never Total Score: 0 YAMILETH-7 AMB Questionnaire YAMILETH-7 Date YAMILETH - 7 assessed: 04/18/25 Source: Developed by Drs. Nadeem Kasper, Dawn Meraz, Demetrius Rosales and colleagues, with an educational prema from [employer]. Review of Systems Const Denies body aches, Denies chills, Denies excessive sweating, Denies fatigue, Denies fever(s) and Denies headache(s) Eyes Denies blurry vision ENT Denies dysphagia, Denies vertigo, Denies dizziness, Denies headache(s), Denies hearing loss and Denies tinnitus Card Denies chest pain, Denies chest pain with activity, Denies syncope, Denies irregular heart rhythm and Denies dyspnea Resp Denies chest congestion, Denies cough, Denies hemoptysis, Denies dyspnea and Denies wheezing GI Denies abdominal pain, Denies melena, Denies hematochezia, Denies coffee ground emesis, Denies dysphagia, Denies diarrhea, Denies nausea and Denies vomiting Denies urinary frequency, Reports difficulty voiding, Denies dysuria, Reports urinary incontinence, Denies urinary hesitancy and Denies urinary urgency Musc Denies arthralgias, Denies limited range of motion, Denies muscle cramps and Denies muscle weakness Skin/Breast Denies rash and Denies skin ulcer Neuro Denies Abnormal speech present, Denies confusion, Denies vertigo, Denies dizziness, Denies syncope, Denies headache(s), Denies memory loss and Denies seizure-like activity Psych Denies anxiety, Denies confusion, Denies depression, Denies memory loss, Denies panic attacks and Denies paranoia Endo Denies excessive sweating, Denies fatigue, Denies flushing, Denies polydipsia and Denies polyuria Aller/Immun Denies wheezing Physical exam (Primary Care) Vital Signs: Last Vital Signs Temp 97.5 F 10/24/25 13:18 Pulse 97 10/24/25 13:18 BP 100/62 10/24/25 13:18 Pulse Ox 97 10/24/25 13:18 Oxygen Delivery Method Room Air 10/24/25 13:18 BMI result Body Mass Index 21.5 Tobacco/Smoking Status: Tobacco use Status Tobacco use date assessed 10/24/25 10/24/25 13:25 Patient Tobacco Use Status Former Tobacco user 10/24/25 13:25 Tobacco use type Cigarette 10/24/25 13:25 e-Cigarette/Vaping Use Never Used 10/24/25 13:25 Thrive Assessment: Date of Thrive Assessment Date Thrive assessed 04/18/25 10/24/25 13:25 Currently or been in a relationship where the following occur: I choose not to answer Const General: cooperative, comfortable, no acute distress, alert and awake; No confusion Orientation/consciousness: oriented to person, oriented to place, patient oriented x3 and No confusion HENMT Head: Yes normocephalic Ears: external ears normal and TM's normal bilaterally Face and sinus: No sinus tenderness Mouth: Normal oral and palatal mucosa present and tongue normal Teeth and gingiva: dentition normal and gingiva normal Throat: Yes posterior oropharynx normal, Yes tonsils normal and Yes uvula midline Eyes Conjunctivae: conjunctivae normal Sclerae: sclerae normal Pupils: Equal, round and reactive pupils present EOM: EOMs intact bilaterally Direct Ophthalmoscopy: No no photophobia Neck Neck: Yes no lymphadenopathy, No tender and Yes no JVD Thyroid: Thyroid normal Carotids: no bruits Chest Chest palpation & inspection: no tenderness Resp Effort & Inspection: normal respiratory effort, no audible wheezes, not labored and no stridor Auscultation: no crackles, no rales, no rhonchi and no wheezes Cardio Jugular venous distension: no JVD Rate: regular rate, not bradycardic and not tachycardic Rhythm: regular rhythm Bruits: no carotid bruits Peripheral pulses: Peripheral pulses 2+ throughout GI Inspection: Yes normal to inspection, No abdominal wall ecchymosis and No visible herniation Palpation (GI): Soft to palpation, nontender, no guarding, not rigid and No hepatosplenomegaly present Auscultation: normoactive bowel sounds General: Yes no CVA tenderness Back/Spine/Pelvis Back: no CVA tenderness and No back tenderness Cervical Spine: cervical ROM normal Thoracic/Lumbar Spine: thoracic and lumbar spine normal to inspection, straight leg raise negative bilaterally, No thoraco-lumbar ROM limited and No lumbar spinal tenderness Skin Lesions: no lesions Rashes: no rashes Wounds: no wounds Neuro General: oriented to person, oriented to place, patient oriented x3, CN's II-XI intact bilaterally and No confusion Cranial nerves: Yes Equal, round and reactive pupils present and Yes Normal accommodation reflex present Cognition (Neuro): normal cognition Speech: No Abnormal speech present Gait exam (Neuro): Normal gait present Motor exam (neuro): 5/5 motor strength present throughout Extrem Right upper extremity: full ROM; no cyanosis Left upper extremity: full ROM; no cyanosis Right lower extremity: no edema Left lower extremity: no edema Psych Appearance: grossly normal Mental Status: mental status grossly normal Affect: normal affect Attitude: cooperative Thought process: Normal thought process present Coding Level of Care Code Est Pt Prev Care 40-64y(19508) Diagnoses Annual physical exam Z00.00 Mixed hyperlipidemia E78.2 Hyperlipidemia type: mixed hyperlipidemia Primary osteoarthritis of both knees M17.0 Laterality: bilateral Osteoarthritis type: primary Primary hypertension I10 Hypertension type: primary hypertension Fibromyalgia M79.7 MDD (major depressive disorder), recurrent episode, moderate F33.1 YAMILETH (generalized anxiety disorder) F41.1 Multiple falls R29.6 Functional urinary incontinence R39.81 Urinary Incontinence type: functional incontinence Assessment & Plan Assessment & Plan (1) Annual physical exam: Code(s): Z00.00 - Encounter for general adult medical examination without abnormal findings Category: Medical Plan: as per HPI (2) HLD (hyperlipidemia): Code(s): E78.5 - Hyperlipidemia, unspecified Category: Medical Qualifiers: Hyperlipidemia type: mixed hyperlipidemia Qualified Code(s): E78.2 - Mixed hyperlipidemia Plan: Patient continues on low-dose statin therapy with good effect. Most recent lipid panel showing good control over total cholesterol and LDL. (3) Knee osteoarthritis: Code(s): M17.10 - Unilateral primary osteoarthritis, unspecified knee Category: Medical Qualifiers: Laterality: bilateral Osteoarthritis type: primary Qualified Code(s): M17.0 - Bilateral primary osteoarthritis of knee Plan: Patient has pretty significant bilateral knee osteoarthritis. Has had a left knee replacement. She has followed up with Rheumatology here in [place] and had aspiration of her left knee and does report a lot of pain relief. (4) HTN (hypertension): Code(s): I10 - Essential (primary) hypertension Category: Medical Qualifiers: Hypertension type: primary hypertension Qualified Code(s): I10 - Essential (primary) hypertension Plan: Patient's blood pressure on the low side today in office. Will hold her hydrochlorothiazide due to signs and symptoms of perhaps low blood pressure due to that may have resulted in her falls. Will supply patient with paper Rx for blood pressure monitor. Will continue her current dose of antihypertensive medication with goal blood pressure to remain below 140/90. (5) Fibromyalgia: Code(s): M79.7 - Fibromyalgia Category: Medical Plan: Patient does seem to have an element of fibromyalgia. She does take gabapentin 100 mg t.i.d. which has helped her pain. (6) MDD (major depressive disorder), recurrent episode, moderate: Code(s): F33.1 - Major depressive disorder, recurrent, moderate Category: Medical Plan: Continues to speak with a mental health therapist and a psychiatrist whom manage her mental health medications. (7) YAMILETH (generalized anxiety disorder): Code(s): F41.1 - Generalized anxiety disorder Category: Medical Plan: Patient's YAMILETH-7 score positive for anxiety which has been existing condition for her. Again follows up with her mental health therapist and a psychiatrist. (8) Multiple falls: Code(s): R29.6 - Repeated falls Category: Medical Plan: Regarding the patient's hypotension and recent falls, the hydrochlorothiazide 12.5 mg will be discontinued. The patient will continue taking losartan 25 mg. A prescription for a blood pressure cuff was provided to facilitate home monitoring. (9) Urinary incontinence: Code(s): R32 - Unspecified urinary incontinence Category: Medical Qualifiers: Urinary Incontinence type: functional incontinence Qualified Code(s): R39.81 - Functional urinary incontinence Plan: Will try for bladder ultrasound to eval for any bladder etiology causing her spastic bladder and urinary incontinence. Orders: Orders US bladder 10/24/25 R32 - Unspecified urinary incontinence Medications: Refilled albuterol sulfate 90 mcg/actuation 2 puffs inhalation Q4H PRN 8.5 grams 6RF bronchospasm 30 days diclofenac sodium 1% (Arthritis Pain (diclofenac)) apply to left knee and hands 4 times a day 4 grams topical QID 100 grams 5RF M17.0 - Bilateral primary osteoarthritis of knee gabapentin 100 mg PO TID 90 caps 3RF 30 days M17.0 - Bilateral primary osteoarthritis of knee oxybutynin chloride ER 10 mg PO DAILY 30 tabs 1RF 30 days N32.89 - Other specified disorders of bladder simvastatin 10 mg PO DAILY 90 tabs 1RF 90 days E78.5 - Hyperlipidemia, unspecified valacyclovir (Valtrex) 1,000 mg PO DAILY 14 tabs 0RF 14 days B02.9 - Zoster without complications cholecalciferol (vitamin D3) 50 mcg PO DAILY 90 caps 1RF 90 days E55.9 - Vitamin D deficiency, unspecified, E78.9 - Disorder of lipoprotein metabolism, unspecified blood pressure test kit-medium As directed 1 ea 0RF I10 - Essential (primary) hypertension On Hold hydrochlorothiazide Hold Comment: Doctor's Order 12.5 mg PO DAILY 90 tabs 1RF I10 - Essential (primary) hypertension
[2025-10-24 13:18] VITALS: BP 100/62; PULSE 97; TEMP 36.4; O2SAT 97; BMI 21.5
== END 2025-10-24 14:13 | disposition home or self-care (01) ==
LOC: HO.HMCH 13:15
PROVIDERS: PCP Physician Assistant; Visit Provider Physician Assistant
DX: Z00.00 Encounter for general adult medical examination without abnormal findings (principal); F33.1 Major depressive disorder, recurrent, moderate; E78.2 Mixed hyperlipidemia; M17.0 Bilateral primary osteoarthritis of knee; I10 Essential (primary) hypertension; M79.7 Fibromyalgia; F41.1 Generalized anxiety disorder; R29.6 Repeated falls; R39.81 Functional urinary incontinence

== ENCOUNTER → 2025-10-24 13:14 | Outpatient (BNVA) | payer OTHER, SELFPAY | PROVIDERS: PCP Physician Assistant; Visit Provider Physician Assistant | DX: Z00.00 Encounter for general adult medical examination without abnormal findings (principal); E78.2 Mixed hyperlipidemia; M17.0 Bilateral primary osteoarthritis of knee; I10 Essential (primary) hypertension; M79.7 Fibromyalgia; F33.1 Major depressive disorder, recurrent, moderate; F41.1 Generalized anxiety disorder; R29.6 Repeated falls; R39.81 Functional urinary incontinence | CPT/HCPCS: 99396 ==

== ENCOUNTER 2025-10-30 13:20 | Outpatient (REF) | payer OTHER, SELFPAY ==
--- NOTE | ~2025-10-30 | MM_ITS ---
EXAMINATION: MM SCREENING DIGITAL BREAST TOMOSYNTHESIS, BILATERAL CLINICAL INFORMATION: Screening. Asymptomatic. COMPARISON: Comparison made to multiple prior, most recent October 24, 2024, and most remote February 20, 2014. TECHNIQUE: Digital breast tomosynthesis is performed in mediolateral oblique and craniocaudal views along with computer-aided detection (CAD). Synthesized 2D images are generated from the tomosynthesis. FINDINGS: BREAST COMPOSITION: The breasts are heterogeneously dense, which may obscure small masses. BILATERAL BREASTS: No significant masses, suspicious calcifications or other abnormalities are seen in either breast. MM/MM tomosynthesis screening BI IMPRESSION: BILATERAL BREASTS: Negative, no mammographic evidence of malignancy. Normal interval follow-up is recommended in 12 months. ASSESSMENT: BI-RADS: Category 1: Negative RECOMMENDATION: Routine annual mammography screening. FOLLOW-UP: 1 year F/U This examination should not preclude the clinical evaluation of a suspicious palpable abnormality. This patient's information was entered into a reminder system with a target due date for their next mammogram. Electronically signed by: Xu Cuellar MD 10/30/2025 08:26 PM [id number]
== END 2025-10-30 13:21 | disposition home or self-care (01) ==
LOC: HO.MAMMO 13:20
PROVIDERS: Visit Provider Physician Assistant
DX: Z12.31 Encounter for screening mammogram for malignant neoplasm of breast (principal)
CPT/HCPCS: 77063; 77067

== ENCOUNTER → 2025-10-30 13:30 | Outpatient (BNV) | payer OTHER, SELFPAY | PROVIDERS: Visit Provider Radiology Body Imaging | DX: Z12.31 Encounter for screening mammogram for malignant neoplasm of breast (principal) | CPT/HCPCS: 77063; 77067 ==